=== PATIENT | female | born 1995 | race African-American/Black ===

== ENCOUNTER → 2017-02-24 | Outpatient (CLI) | payer MEDICAID ==
--- NOTE | 2017-02-24 16:45 | RADIOLOGY REPORT (SQ) ---
EXAM DESCRIPTION: U/S [id number] TRNABD 1GES W/ODOP COMPLETED DATE/TIME: 02/24/2017 3:29 pm REASON FOR STUDY: ENCOUNTER FOR SUPERVISION OR NORMAL FIRST , FIRST TRIMESTER Z34.01 ENCNT R FOR SUPRVSN OF NORMAL FIRST PREG, FIRST TRIMES COMPARISON: None. TECHNIQUE: Transabdominal static and realtime grayscale images acquired of the pelvis. Additional se lected spectral and color Doppler images recorded. All images stored on PACs. bHCG: Not applicable. LIMITATIONS: None. FINDINGS: FETUS: Living intrauterine . EGA: 10 weeks 6 days MIHIR: 09/16/2017 FHR: 155 beats per minute. SUBCHORIONIC BLEED: No SIZE OF BLEED: Not applicable. UTERUS: 11.8 x 10 x 7.3 cm. No masses. No anomalies. CERVICAL LENGTH: 2.8 cm. Closed. RIGHT ADNEXA: Normal ovary with normal vascular flow. 2.5 x 3.2 x 1.8 cm. No adnexal free fluid. No adnexal masses. LEFT ADNEXA: Normal ovary with normal vascular flow. 2.5 x 3.1 x 2.5 cm. No adnexal free fluid. No adnexal masses. FREE FLUID: None. OTHER: No other significant finding. IMPRESSION: LIVING INTRAUTERINE . EGA 10 weeks 6 days. Trimester of : First - 0 to 13 weeks. TECHNICAL DOCUMENTATION: JOB ID: [id number] [employer]- All Rights Reserved
== END ==
LOC: RAD 14:58
PROVIDERS: ATTEND Nurse Practitioner Women's Health
DX: Z34.01 Encounter for supervision of normal first pregnancy, first trimester (principal)
CPT/HCPCS: 76801

== ENCOUNTER 2017-07-04 10:30 | Outpatient (CLI) | payer MEDICAID ==
[2017-07-04 11:05] LABS: APPEARANCE,URINE SLIGHTLY-CLOUDY; BILIRUBIN,URINE NEGATIVE (NEGATIVE); COLOR,URINE YELLOW; GLUCOSE, URINE NEGATIVE (NEGATIVE); KETONES,URINE NEGATIVE (NEGATIVE); LEUKOCYTE ESTERASE,URINE TRACE (NEGATIVE); NITRITE,URINE NEGATIVE (NEGATIVE); PROTEIN,URINE 30 mg/dL (NEGATIVE)
[2017-07-04 11:30] LABS: URINE AMPHETAMINES SCREEN NEGATIVE; URINE BARBITURATES SCREEN NEGATIVE; URINE BENZODIAZEPINES SCREEN NEGATIVE; URINE COCAINE SCREEN NEGATIVE; URINE MARIJUANA (THC) SCREEN NEGATIVE; URINE METHADONE SCREEN NEGATIVE; URINE PHENCYCLIDINE SCREEN NEGATIVE
[2017-07-04] MEDS ORDERED: RINGERS SOLUTION,LACTATED 1,000 ML IV PRN ×2 (11:45→11:46)
[2017-07-04 13:18] LABS: ABSOLUTE EOSINOPHILS # (AUTO) 0.1 10^3/uL (0.0-0.6); ABSOLUTE LYMPHOCYTES (AUTO) 1.1 10^3/uL (0.5-4.7); ABSOLUTE MONOCYTES (AUTO) 0.7 10^3/uL (0.1-1.4); ABSOLUTE NEUT (AUTO) 7.8 10^3/uL (1.7-8.2); BASOPHILS % (AUTO) 0.4 % (0-2); EOSINOPHILS % (AUTO) 1.2 % (0-6); HEMATOCRIT 29.7 % (36.0-47.0); LYMPHOCYTES % (AUTO) 11.2 % (13-45); MEAN CORPUSCULAR HEMOGLOBIN 29.4 pg (27.0-33.4); MEAN CORPUSCULAR HGB CONC 33.6 g/dL (32.0-36.0); MEAN CORPUSCULAR VOLUME 88 fl (80-97); MONOCYTES % (AUTO) 7.5 % (3-13); PLATELET COUNT 167 10^3/uL (150-450); RED BLOOD COUNT 3.39 10^6/uL (3.72-5.28); RED CELL DISTRIBUTION WIDTH 13.6 % (11.5-14.0); SEGMENTED NEUTROPHILS % (AUTO) 79.7 % (42-78); TOTAL CELLS COUNTED % (AUTO) 100 %; WHITE BLOOD COUNT 9.8 10^3/uL (4.0-10.5)
[2017-07-04 13:32] LABS: PROTHROMBIN TIME 13.7 SEC (11.4-15.4)
[2017-07-04 13:33] LABS: PARTIAL THROMBOPLASTIN TIME 30.3 SEC (23.5-35.8)
[2017-07-04] MEDS ORDERED: PSEUDOEPHEDRINE HCL 30 MG TABLET PO PRN (13:53)
[2017-07-04] MEDS ORDERED: ACETAMINOPHEN 325 MG TABLET PO PRN (13:53)
--- NOTE | 2017-07-04 13:56 | RADIOLOGY REPORT (SQ) ---
EXAM DESCRIPTION: U/S OB LIMITED COMPLETED DATE/TIME: 07/04/2017 1:41 pm REASON FOR STUDY: contractions, 29wks, cervical length COMPARISON: 02/24/2017 TECHNIQUE: Limited transabdominal grayscale ultrasound for evaluation of specific requested obstetri juan c parameters. LIMITATIONS: None. FINDINGS: CERVICAL LENGTH: 4 cm. Closed. DARIN: Not measured. Cm. FHR: 145 beats per minute. PRESENTATION: Not indicated. OTHER: No other significant findings. IMPRESSION: LIMITED OBSTETRICAL ULTRASOUND WITH MEASURED PARAMETERS DELINEATED ABOVE. Trimester of : Third trimester - 28 weeks to delivery. TECHNICAL DOCUMENTATION: JOB ID: [id number] [employer]- All Rights Reserved Reading location - IP/workstation name: [email or web address]
[2017-07-04] MEDS ORDERED: ACETAMINOPHEN 325 MG TABLET ONE (14:05)
[2017-07-05] MEDS ORDERED: PRENATAL VITAMIN W DHA CAPSULE PO SCH (10:00)
== END 2017-07-04 14:25 | disposition home or self-care (01) ==
LOC: LC 10:30
PROVIDERS: ATTEND Student in an Organized Health Care Education/Training Program
PROC: 4A1HXCZ Monitoring of Products of Conception, Cardiac Rate, External Approach (ICD-10-PCS; principal; 2017-07-04)
DX: O99.283 Endocrine, nutritional and metabolic diseases complicating pregnancy, third trimester (principal); E86.0 Dehydration; R04.0 Epistaxis; R10.31 Right lower quadrant pain; Z3A.29 29 weeks gestation of pregnancy
CPT/HCPCS: 59899; 36415; 87086; 85025; 85362; 85610; 85730; 81001; 80307; 76815; J3490

== ENCOUNTER 2017-08-15 10:36 | Outpatient (CLI) | payer MEDICAID ==
[2017-08-15 11:43] LABS: APPEARANCE,URINE SLIGHTLY-CLOUDY; BILIRUBIN,URINE NEGATIVE (NEGATIVE); COLOR,URINE YELLOW; GLUCOSE, URINE NEGATIVE (NEGATIVE); KETONES,URINE 20 mg/dL (NEGATIVE); LEUKOCYTE ESTERASE,URINE NEGATIVE (NEGATIVE); NITRITE,URINE NEGATIVE (NEGATIVE); PROTEIN,URINE NEGATIVE (NEGATIVE); URINE SPECIFIC GRAVITY 1.008
[2017-08-15 12:19] LABS: URINE AMPHETAMINES SCREEN NEGATIVE; URINE BARBITURATES SCREEN NEGATIVE; URINE BENZODIAZEPINES SCREEN NEGATIVE; URINE COCAINE SCREEN NEGATIVE; URINE MARIJUANA (THC) SCREEN NEGATIVE; URINE METHADONE SCREEN NEGATIVE; URINE PHENCYCLIDINE SCREEN NEGATIVE
== END 2017-08-15 11:46 | disposition home or self-care (01) ==
LOC: LC 10:36
PROVIDERS: ATTEND Obstetrics & Gynecology Gynecology
PROC: 4A1HXCZ Monitoring of Products of Conception, Cardiac Rate, External Approach (ICD-10-PCS; principal; 2017-08-15)
DX: O47.03 False labor before 37 completed weeks of gestation, third trimester (principal); Z3A.35 35 weeks gestation of pregnancy
CPT/HCPCS: 59025; 80307; 81001

== ENCOUNTER 2017-09-02 15:20 | Inpatient (IN) | payer MEDICAID ==
--- NOTE | 2017-09-02 15:26 | Non Stress Test Report ---
Non Stress Test Datetime Report Generated by CPN: 09/02/2017 15:26 DEMOGRAPHIC EGA NST: 35.3 INDICATION Indication for Study: Ordered by Provider VITAL SIGNS Temperature - NST: 98.9 Pulse - NST: 95 RESP - NST: 18 NBPSYS NST: 124 NBPDIA NST: 74 MONITORING Monitor Explained: Monitor Explained; Test Explained; Patient Verbalized Understanding Time on Monitor: 08/15/2017 10:55 Time off Monitor: 08/15/2017 11:55 NST Duration: 60 NST INTERVENTIONS NST Interventions: PO Hydration Physician Notified NST: A Daniel CNM BABY A: [id number] BABY A Movement : Present Contraction Frequency : uterine irritability FHR Baseline : 145 Accelerations : 15X15 Decelerations : None Variability : Moderate 6-25bpm NST Review: Meets Criteria for Reactive NST NST Review and Verified By : Ayala Garcia RN NST Results: Reactive NST REPORT Report Trigger: Send Report
[2017-09-02] MEDS ORDERED: RINGERS SOLUTION,LACTATED 1,000 ML IV PRN (15:46)
[2017-09-02] MEDS ORDERED: ZOLPIDEM TARTRATE 5 MG TABLET PO PRN (15:46)
[2017-09-02] MEDS ORDERED: RINGERS SOLUTION,LACTATED 300 ML IV ONE (15:46)
[2017-09-02] MEDS ORDERED: DINOPROSTONE 10 MG VAGINAL INSERT.SR PV PRN (15:46)
[2017-09-02] MEDS ORDERED: OXYTOCIN/NORMAL SALINE 20 UNIT/1,000 ML RTUINJ IV PRN (15:46)
[2017-09-02] MEDS ORDERED: PENICILLIN G POTASSIUM 5,000,000 UNIT in DEXTROSE 5%-WATER 100 ML IV ONE (15:49)
[2017-09-02 16:13] LABS: ABSOLUTE EOSINOPHILS # (AUTO) 0.1 10^3/uL (0.0-0.6); ABSOLUTE LYMPHOCYTES (AUTO) 1.5 10^3/uL (0.5-4.7); ABSOLUTE MONOCYTES (AUTO) 0.6 10^3/uL (0.1-1.4); ABSOLUTE NEUT (AUTO) 5.7 10^3/uL (1.7-8.2); BASOPHILS % (AUTO) 0.6 % (0-2); EOSINOPHILS % (AUTO) 1.6 % (0-6); HEMATOCRIT 32.5 % (36.0-47.0); HEMOGLOBIN 10.7 g/dL (12.0-15.5); LYMPHOCYTES % (AUTO) 19.3 % (13-45); MEAN CORPUSCULAR HEMOGLOBIN 28.3 pg (27.0-33.4); MEAN CORPUSCULAR VOLUME 86 fl (80-97); MONOCYTES % (AUTO) 7.2 % (3-13); PLATELET COUNT 145 10^3/uL (150-450); RED BLOOD COUNT 3.78 10^6/uL (3.72-5.28); RED CELL DISTRIBUTION WIDTH 14.1 % (11.5-14.0); SEGMENTED NEUTROPHILS % (AUTO) 71.3 % (42-78); TOTAL CELLS COUNTED % (AUTO) 100 %; WHITE BLOOD COUNT 7.9 10^3/uL (4.0-10.5)
--- NOTE | 2017-09-02 16:18 | Admission Physical ---
Datetime Report Generated by CPN: 09/02/2017 16:17 CURRENT ADMISSION Hx Assessment: The History has been Reviewed and is Current Chief Complaint: Sent from OB Office for Evaluation and Treatment - Please Specify; Other Chief Complaint Other: sent from office for induction of labor Indication for Induction: Not Applicable; Gestational HTN Admit Impression : Term, Intrauterine ; No Active Labor; Intact Membranes; Induction of Labor Admit Plan: Admit to Unit; Initiate Labor Induction Protocol ALLERGIES Medication Allergies: No Medication Allergies: No Known Allergies (09/02/2017) Latex: No Latex Allergies Food Allergies: no OBSTETRICAL HISTORY EDC: 09/16/2017 00:00 : 1 Para: 0 Term: 0 : 0 SAB: 0 IAB: 0 Ectopic: 0 Livin Cesareans: 0 VBACs: 0 Multiple Births: 0 Gestational Diabetes: No Rh Sensitization: No Incompetent Cervix: No HAYLEY: No Infertility: No ART Treatment: No Uterine Anomaly: No IUGR: No Hx Previous C/S: No Macrosomia: No Hx Loss/Stillborn: No PIH: No Hx : No Placenta Previa/Abruption: No Depression/PP Depression: No PTL/PROM: No Post Hemorrhage: No Current Procedures: Ultrasound Obstetrical History Comments: G1- current SEE RECORDS Alcohol: No Marijuana : No Cocaine: No Other Illicit Drugs: No Cigarettes: Never Smoker. [id number] MEDICAL HISTORY Diabetes: No Blood Transfusion: No Pulmonary Disease (Asthma, TB): No Breast Disease: No Hypertension: No Park Warden Surgery: No Heart Disease: No Hosp/Surgery: Yes Autoimmune Disorder: No Anesthetic Complications: No Kidney Disease: No Abnormal Pap Smear: No Neuro/Epilepsy: No Psychiatric Disorders: No Other Medical Diseases: No Hepatitis/Liver Disease: No Significant Family History: No Varicosities/Phlebitis: No Trauma/Violence : No Thyroid Dysfunction: No Medical History Comments: Tonsilectomy-10 y/o INFECTIOUS HISTORY Gonorrhea: No Genital Herpes: No Chlamydia: No Syphilis: No Hepatitis: No HIV/AIDS Exposure: No Rash or Viral Illness: No HPV: No PHYSICAL EXAM General: Normal HEENT: Normal Neurologic: Normal Thyroid: Deferred Heart: Normal Lungs: Normal Breast: Normal Back: Normal Abdomen: Normal Genitourinary Exam: Normal Extremities: Normal DTRs: Normal Pelvic Type: Adequate Vital Signs: Reviewed VAGINAL EXAM Dilatation: 0 Effacement: 50 Station: -1 Contraction Comments: irreg MEMBRANES Membranes: Intact FETUS A EGA: 38.0 Monitoring: External US FHR- Baseline: 145 Variability: Moderate 6-25bpm Accelerations: 15X15 Decelerations: None FHR Category: Category I Estimated Weight (gm): 3600 Presentation: Vertex Admit Comment: Sent in from office for elevated bp last 2 visits, denies headache, visual dist. and epigastric pain, denies vb, leaking, states active baby, denies ctx. Admit to IOL GHTN vs. pre-e Cervidil overnight GBS +, start pcn at 4 am or active labor Pre-e labs PLANS FOR LABOR AND DELIVERY Labor and Delivery: None Pain Management: None Other Pain Management Plans: "double scoliosis no epidural Feeding Preference: Breast Benefit of Breast Feed Discussed: Yes Circumcision: N/A INFORMED CONSENT Assignment: Manjula Morataya MD Signature: with User ID: [email or web address] : with User ID: [email or web address]
[2017-09-02 16:25] LABS: APPEARANCE,URINE SLIGHTLY-CLOUDY; BILIRUBIN,URINE NEGATIVE (NEGATIVE); COLOR,URINE YELLOW; GLUCOSE, URINE NEGATIVE (NEGATIVE); KETONES,URINE NEGATIVE (NEGATIVE); LEUKOCYTE ESTERASE,URINE SMALL (NEGATIVE); NITRITE,URINE NEGATIVE (NEGATIVE); PROTEIN,URINE NEGATIVE (NEGATIVE); URINE SPECIFIC GRAVITY 1.008
[2017-09-02 16:33] LABS: ALANINE AMINOTRANSFERASE 25 U/L (9-52); ALBUMIN 3.4 g/dL (3.5-5.0); ALKALINE PHOSPHATASE 137 U/L (38-126); ANION GAP 12 (5-19); ASPARTATE AMINO TRANSFERASE 18 U/L (14-36); BILIRUBIN,DIRECT 0.3 mg/dL (0.0-0.4); BILIRUBIN,TOTAL 0.8 mg/dL (0.2-1.3); BLOOD UREA NITROGEN 4 mg/dL (7-20); CALCIUM 9.1 mg/dL (8.4-10.2); CARBON DIOXIDE 21 mmol/L (22-30); CHLORIDE 110 mmol/L (98-107); GLUCOSE 72 mg/dL (75-110); LDH 463 U/L (313-618); POTASSIUM 3.8 mmol/L (3.6-5.0); SODIUM 142.9 mmol/L (137-145); TOTAL PROTEIN 6.7 g/dL (6.3-8.2); URIC ACID 4.6 mg/dL (2.5-6.2)
[2017-09-02 16:33] LABS: URINE AMPHETAMINES SCREEN NEGATIVE; URINE BARBITURATES SCREEN NEGATIVE; URINE BENZODIAZEPINES SCREEN NEGATIVE; URINE COCAINE SCREEN NEGATIVE; URINE MARIJUANA (THC) SCREEN NEGATIVE; URINE METHADONE SCREEN NEGATIVE; URINE PHENCYCLIDINE SCREEN NEGATIVE
[2017-09-02 16:37] LABS: UR PRO/CREAT RATIO RESULT 0.3 mg/mg (0.0-0.2); URINE CREATININE 87.5 mg/dL (16-327); URINE PROTEIN 23.2 mg/dL (<12)
[2017-09-02] MEDS ORDERED: DINOPROSTONE 10 MG VAGINAL INSERT.SR ONE (18:09)
[2017-09-02] MEDS ORDERED: ACETAMINOPHEN 325 MG TABLET ONE (23:55)
[2017-09-02] MEDS: ACETAMINOPHEN 325 MG TABLET PO PRN (23:57)
[2017-09-03] MEDS ORDERED: PENICILLIN G-K 5 MILLION UNIT VIAL ONE ×6 (00:11→21:55)
[2017-09-03] MEDS: PENICILLIN G POTASSIUM 2,500,000 UNIT in DEXTROSE 5%-WATER 50 ML IV SCH (04:19)
[2017-09-03] MEDS ORDERED: MISOPROSTOL 0.1 MG TABLET PO ONE ×2 (08:11→13:33)
[2017-09-03] MEDS ORDERED: MISOPROSTOL 0.1 MG TABLET ONE ×2 (08:16→13:37)
[2017-09-03] MEDS ORDERED: MISOPROSTOL 0.1 MG TABLET PV ONE (13:35)
[2017-09-03] MEDS ORDERED: MISOPROSTOL 0.2 MG TABLET ONE (18:09)
[2017-09-03] MEDS ORDERED: OXYTOCIN/NORMAL SALINE 20 UNIT/1,000 ML RTUINJ ONE (18:10)
[2017-09-03] MEDS ORDERED: LIDOCAINE 1% INJ-PF (10 MG/ML) 30 ML SDV ONE (18:10)
[2017-09-03] MEDS ORDERED: OXYTOCIN/NORMAL SALINE 20 UNIT/1,000 ML RTUINJ IV PRN (18:11)
[2017-09-03] MEDS ORDERED: ACETAMINOPHEN 325 MG TABLET ONE (23:40)
[2017-09-03] MEDS: ACETAMINOPHEN 325 MG TABLET PO PRN (23:42)
[2017-09-04] MEDS ORDERED: PENICILLIN G-K 5 MILLION UNIT VIAL ONE ×3 (02:27→10:25)
[2017-09-04] MEDS ORDERED: ONDANSETRON HCL INJ/PF 4 MG/2 ML SDV ONE (02:44)
[2017-09-04] MEDS ORDERED: ONDANSETRON HCL INJ/PF 4 MG/2 ML SDV IV ONE (03:01)
[2017-09-04] MEDS ORDERED: PROMETHAZINE HCL INJ 25 MG/1 ML VIAL IV ONE (11:02)
[2017-09-04] MEDS ORDERED: NALBUPHINE HCL INJ 10 MG/1 ML AMPULE INJ ONE (11:02)
[2017-09-04] MEDS ORDERED: PROMETHAZINE HCL INJ 25 MG/1 ML VIAL ONE (11:03)
[2017-09-04] MEDS ORDERED: NALBUPHINE HCL INJ 10 MG/1 ML AMPULE ONE (11:04)
[2017-09-04] MEDS ORDERED: HYDROCODONE/ACETAMINOPHEN 5-325 MG TABLET PO PRN (14:28)
[2017-09-04] MEDS ORDERED: MAGNESIUM HYDROXIDE SUSP 30 ML UDCUP PO PRN (14:28)
[2017-09-04] MEDS ORDERED: ACETAMINOPHEN WITH CODEINE #3 TABLET PO PRN ×2 (14:28)
[2017-09-04] MEDS ORDERED: PROMETHAZINE HCL 25 MG TABLET PO PRN (14:28)
[2017-09-04] MEDS ORDERED: BENZOCAINE/MENTHOL AEROSOL SPRAY 56 ML TOP PRN (14:28)
[2017-09-04] MEDS ORDERED: NA PHOS,M-B/NA PHOS,DI-BA (ADULT) 133 ML ENEMA PR PRN (14:28)
[2017-09-04] MEDS ORDERED: DIBUCAINE 1% OINTMENT 28 GM TP PRN (14:28)
[2017-09-04] MEDS ORDERED: DIPHENHYDRAMINE HCL 25 MG CAPSULE PO PRN (14:28)
[2017-09-04] MEDS ORDERED: DIPH/PERTUSS(ACELL)/TETANUS VAC/PF 0.5 ML SYR (>=10YO) IM PRN (14:28)
[2017-09-04] MEDS ORDERED: MEASLES,MUMPS&RUBELLA VACC/PF 0.5 ML VIAL SUBCUT PRN (14:28)
[2017-09-04] MEDS ORDERED: PSEUDOEPHEDRINE HCL 30 MG TABLET PO PRN (14:28)
[2017-09-04] MEDS ORDERED: GLYCERIN/WITCH HAZEL LEAF 1 EACH MED..PAD TP PRN (14:28)
[2017-09-04] MEDS ORDERED: PROMETHAZINE HCL 25 MG SUPP.RECT PR PRN (14:28)
[2017-09-04] MEDS ORDERED: PROMETHAZINE HCL INJ 25 MG/1 ML VIAL IV PRN (14:28)
[2017-09-04] MEDS ORDERED: ZOLPIDEM TARTRATE 5 MG TABLET PO PRN (14:28)
[2017-09-04] MEDS ORDERED: OXYTOCIN/NORMAL SALINE 20 UNIT/1,000 ML RTUINJ IV PRN (14:28)
[2017-09-04] MEDS ORDERED: ACETAMINOPHEN 650 MG SUPP.RECT PR PRN (14:28)
[2017-09-04] MEDS ORDERED: OXYTOCIN/NORMAL SALINE 20 UNIT/1,000 ML RTUINJ ONE (14:48)
--- NOTE | 2017-09-04 15:12 | Warning Signs in Babies ---
VOD Warning Signs Datetime Report Generated by [facility]: 09/04/2017 15:12 VOD#608 -Warning Signs in Babies: Viewed with Parent(s)/Family (09/04/2017 15:05:Idania Tavarez RN)
[2017-09-04] MEDS: PENICILLIN G POTASSIUM 2,500,000 UNIT in DEXTROSE 5%-WATER 50 ML IV SCH (16:30)
[2017-09-04] MEDS: DOCUSATE SODIUM 100 MG CAPSULE PO SCH (19:59)
[2017-09-04] MEDS: FERROUS SULFATE 325 MG TABLET PO SCH (19:59)
[2017-09-04] MEDS: FAMOTIDINE 20 MG TABLET PO SCH (22:39)
[2017-09-04] MEDS: IBUPROFEN 800 MG TABLET PO SCH (22:40)
[2017-09-05] MEDS: IBUPROFEN 800 MG TABLET PO SCH ×3 (06:16→21:19)
[2017-09-05 07:49] LABS: HEMATOCRIT 22.9 % (36.0-47.0); MEAN CORPUSCULAR HGB CONC 32.4 g/dL (32.0-36.0); MEAN CORPUSCULAR VOLUME 86 fl (80-97); PLATELET COUNT 169 10^3/uL (150-450); RED BLOOD COUNT 2.65 10^6/uL (3.72-5.28); RED CELL DISTRIBUTION WIDTH 14.2 % (11.5-14.0)
[2017-09-05 08:05] LABS: HEMOGLOBIN 7.4 g/dL (12.0-15.5); WHITE BLOOD COUNT 16.7 10^3/uL (4.0-10.5)
--- NOTE | 2017-09-05 09:08 | PDOC PROGRESS REPORT ---
Subjective-OB Progress Note for:: 09/05/17 Subjective: Day #1 s/p Denies concerns, states lochia is stable, pain well controlled, voiding without difficulty. Physical Exam (OB) Vital Signs: Temp Pulse Resp BP Pulse Ox 98.5 F 88 16 109/59 L 98 09/05/17 07:57 09/05/17 07:57 09/05/17 07:57 09/05/17 07:57 09/05/17 07:57 - PIH/Pre-Eclampsia DTR's: 1 + Clonus: Negative Headache: Absent Epigastric Pain: No Visual Changes: No - Lochia Lochia Amount: Small 10-25 ml Lochia Color: Rubra/Red - Abdomen Description: Soft, Round Hernia Present: No Fundal Description: Firm, Midline Fundal Height: u/u - u/2 Objective-Diagnostic Laboratory: 09/05/17 06:54 09/02/17 16:00 09/02/17 09/05/17 16:00 06:54 WBC 16.7 H D RBC 2.65 L Hgb 7.4 L D Hct 22.9 L MCV 86 MCH 28.0 MCHC 32.4 RDW 14.2 H Plt Count 169 Blood Type A POSITIVE Antibody Screen NEGATIVE Assessment and Plan(PN) - Assessment and Plan (1) Vaginal delivery Is this a current diagnosis for this admission?: Yes Plan: routine pp care (2) Positive GBS test Is this a current diagnosis for this admission?: Yes Plan: tx in labor (3) Gestational hypertension Qualifiers: Trimester: third trimester Qualified Code(s): O13.3 - Gestational [ -induced] hypertension without significant proteinuria, third trimester Is this a current diagnosis for this admission?: Yes Plan: monitor bp and s/sx - Time Spent with Patient Time with patient: Less than 15 minutes Critical Time spent with patient: Less than 15 minutes Medications reviewed and adjusted accordingly: Yes - Disposition Anticipated Discharge: Home Within: within 24 hours
[2017-09-05] MEDS: DOCUSATE SODIUM 100 MG CAPSULE PO SCH ×2 (09:52→17:35)
[2017-09-05] MEDS: FERROUS SULFATE 325 MG TABLET PO SCH ×2 (09:53→17:35)
[2017-09-05] MEDS: FAMOTIDINE 20 MG TABLET PO SCH ×2 (09:53→21:21)
[2017-09-05] MEDS: SENNOSIDES/DOCUSATE 8.6-50 MG 1 EACH TABLET PO SCH (09:53)
[2017-09-05] MEDS: PRENATAL VITAMIN W DHA CAPSULE PO SCH (09:53)
[2017-09-06] MEDS: IBUPROFEN 800 MG TABLET PO SCH (06:03)
--- NOTE | 2017-09-06 09:11 | PDOC DISCHARGE SUMMARY ---
Final Diagnosis Discharge Date: 09/06/17 - Final Diagnosis (1) Vaginal delivery Is this a current diagnosis for this admission?: Yes (2) Positive GBS test Is this a current diagnosis for this admission?: Yes (3) Gestational hypertension Is this a current diagnosis for this admission?: Yes Discharge Data - Discharge Medication Prescriptions: Docusate Sodium [Colace 100 mg Capsule] 100 mg PO BID #60 capsule Ferrous Sulfate [Feosol 325 mg Tablet] 325 mg PO BID #60 tablet Ibuprofen [Motrin 800 mg Tablet] 800 mg PO Q8 #60 tablet Home Medications: Pnv No.121/Iron/Folic Acid [ Multivitamin Tablet] 1 tab PO DAILY Docusate Sodium [Colace 100 mg Capsule] 100 mg PO BID #60 capsule 09/06/17 Ferrous Sulfate [Feosol 325 mg Tablet] 325 mg PO BID #60 tablet 09/06/17 Ibuprofen [Motrin 800 mg Tablet] 800 mg PO Q8 #60 tablet 09/06/17 Gestational Age: 37 Reason(s) for Admission: Induction of Labor, PIH Procedures: NST Intrapartum Procedure(s): Spontaneous Vaginal Delivery Complication(s): Laceration-Vaginal Laceration-Degree: 1st - Data Baby 1 Female Home with Mother: Yes Complications: No - Diagnosis Test Laboratory: Temp Pulse Resp BP Pulse Ox 97.8 F 70 18 117/76 100 09/06/17 07:17 09/06/17 07:17 09/06/17 07:17 09/06/17 07:17 09/06/17 07:17 09/02/17 09/02/17 09/05/17 15:32 16:00 06:54 RBC 3.78 2.65 L Hgb 10.7 L 7.4 L D Hct 32.5 L 22.9 L Urine Opiates Screen NEGATIVE - Discharge information/Instructions Discharge Activity: Activity As Tolerated, Pelvic Rest, No tub bath Discharge Diet: Regular Disposition: HOME, SELF-CARE Follow up with: [facility] in: 1, Weeks - bp check
[2017-09-06] MEDS: SENNOSIDES/DOCUSATE 8.6-50 MG 1 EACH TABLET PO SCH (09:17)
[2017-09-06] MEDS: DOCUSATE SODIUM 100 MG CAPSULE PO SCH (09:17)
[2017-09-06] MEDS: FAMOTIDINE 20 MG TABLET PO SCH (09:17)
[2017-09-06] MEDS: FERROUS SULFATE 325 MG TABLET PO SCH (09:17)
[2017-09-06] MEDS: PRENATAL VITAMIN W DHA CAPSULE PO SCH (09:17)
[2017-09-06 14:08] VITALS: BP 127/76
--- NOTE | 2017-09-12 08:42 | Delivery Summary ---
Del Sum A-C Datetime Report Generated by CPN: 09/12/2017 08:42 DELIVERY PERSONNEL DELIVERY PERSONNEL: [id number] Delivery Doctor:: Maria Isabel Orellana CNM Nurse Cooking Chef Certified:: Maria Isabel Orellana CNM Labor and Delivery Nurse:: Idania Tavarez RNjapanese interpreter Nurse:: TRESA Bonner Nursery Nurse:: Heidi Emery RN Additional Personnel: : Chuyita Sutherland RN MATERNAL INFORMATION Delivery Anesthesia: Local Medications After Delivery: Pitocin Bolus-Please Comment Meds After Delivery Comment: Pitocin 20 units in 1000 ml nss open for bolus, additional bag of 20 units of pitocin in 1000 ml NS per order Estimated Blood Loss (ml): 175 Maternal Complications: Other Provider Comments: live female in vertex OA to RAIZA at 1435. Spontaneous respirations and cry after bulb suction of mouth and nose. 3-vessel cord. Apgars 8-9. Cord clamped x2, after 2 min delay, then cut by female relative of patient. Placenta, membranes, and cord expelled at 1440, Sniha presentation. 1st degree laceration of left labia extending into the vagina repaired as noted above under local anesthesia. FF at U-2. Hemostasis achieved. Patient tolerated procedure well. LABOR SUMMARY EDC: 09/16/2017 00:00 No. Babies in Womb: 1 Attempted: No Labor Anesthesia: IV Sedation LABOR INFORMATION Reason for Induction: Gestational Hypertension Cervical Ripening Agents: Cervidil; Cytotec @ Cervical Ripening Agents: Cytotec @ 50 mcg PO Cervical Ripening Agents: Cervidil Oxytocin: Induction Group B Beta Strep: positive Antibiotics # of Doses: 7 Antibiotics Time of Last Dose: 105 Name of Antibiotic Given: PCN Steroids Given: None Reason Steroids Not Administered: Not Applicable MEMBRANES Membranes Rupture Method: Artificial Rupture of Membranes: 09/04/2017 02:20 Length of Rupture (hr): 12.25 Amniotic Fluid Color: Clear Amniotic Fluid Amount: Small Amniotic Fluid Odor: Normal STAGES OF LABOR Stage 3 hr: 0 Stage 3 min: 5 VAGINAL DELIVERY Episiotomy: None Laceration #1: Vaginal Laceration Extension #1: First Degree Other Laceration: left labial Laceration Repair: Yes Laceration Repair Note: Repaired using interrupted stitches 3-0 Chromic Sponge Count Correct: N/A Sharps Count Correct: N/A CSECTION DELIVERY Primary Indication: N/A Secondary Indication: N/A CSection Incidence: N/A Labor: N/A Elective: N/A CSection Incision: N/A BABY A INFORMATION Infant Delivery Date/Time: 09/04/2017 14:35 Method of Delivery: Vaginal Method of Delivery: Vaginal Born in Route : No : N/A Forceps: N/A Vacuum Extraction: N/A Shoulder Dystocia : No PRESENTATION/POSITION BABY A Presentation: Cephalic Presentation: Cephalic Cephalic Presentation: Vertex Vertex Position: Right Occipital Anterior Breech Presentation: N/A PLACENTA INFORMATION BABY A Placenta Delivery Time : 09/04/2017 14:40 Placenta Method of Delivery: Expressed Placenta Method of Delivery: Expressed Placenta Status: Delivered SCORES BABY A Heart Rate 1 min: >100 bpm Heart Rate 1 min: >100 bpm Resp Effort 1 min: Good Cry Resp Effort 1 min: Good Cry Reflex Irritability 1 min: Cough or Sneeze or Pulls Away Reflex Irritability 1 min: Cough or Sneeze or Pulls Away Muscle Tone 1 min: Active Motion Muscle Tone 1 min: Active Motion Color 1 min: Blue/Pale Color 1 min: Blue/Pale Resuscitation Effort 1 min: Tactile Stimulation Resuscitation Effort 1 min: Tactile Stimulation SCORE 1 MIN: 8 Heart Rate 5 min: >100 bpm Heart Rate 5 min: >100 bpm Resp Effort 5 min: Good Cry Resp Effort 5 min: Good Cry Reflex Irritability 5 min: Cough or Sneeze or Pulls Away Reflex Irritability 5 min: Cough or Sneeze or Pulls Away Muscle Tone 5 min: Active Motion Muscle Tone 5 min: Active Motion Color 5 min: Body [place], Extremities Blue Color 5 min: Body [place], Extremities Blue Resuscitation Effort 5 min: Tactile Stimulation Resuscitation Effort 5 min: Tactile Stimulation SCORE 5 MIN: 9 INFANT INFORMATION BABY A Gestational Age at Delivery: 38.0 Gestational Status: Early Term- 37- 38.6 Weeks Infant Outcome : Liveborn Infant Condition : Stable Infant Sex: Female Infant Sex: Female IDENTIFICATION BABY A Infant Verification Date/Time: 09/04/2017 14:56 ID Band Number: [id number] Mother's Name Verified: Yes Infant RN Verifying Infant: Alejandra Escamilla [facility] Additional Verifying Personnel: Ana M Mccain RN WEIGHT/LENGTH BABY A Birthweight (gm): 3350 Weight (lb): 7 Weight (oz): 6 Infant Length (in): 20.50 Infant Length (cm): 52.07 CORD INFORMATION BABY A No. Cord Vessels: 3 Nuchal Cord : N/A Cord Blood Taken: Yes-For Storage (Mom's Blood type +) Infant Suction: Mouth; Nose ASSESSMENT BABY A Infant Complications: None Physical Findings at Delivery: Within Normal Limits Respirations: Appears Normal Skin to Skin: Yes Master Cosmetologist/ALS Called : No Infant Care By: Toney Emery [facility] Transferred To: Remains with Mother BABY B INFORMATION : N/A SIGNATURES Assignment: Manjula Morataya MD Signature: with User ID: [email or web address] : with User ID: [email or web address] : I personally evaluated and examined the patient in conjunction with the MLP and agree with the assessment, treatment plan and disposition.
== END 2017-09-06 15:30 | disposition home or self-care (01) | DRG 775 ==
LOC: LR 15:20 → 2S 09-04 18:30
PROVIDERS: ADMIT Obstetrics & Gynecology; ATTEND Obstetrics & Gynecology
PROC: 3E0P7VZ Introduction of Hormone into Female Reproductive, Via Natural or Artificial Opening (ICD-10-PCS; 2017-09-02)
PROC: 3E033VJ Introduction of Other Hormone into Peripheral Vein, Percutaneous Approach (ICD-10-PCS; 2017-09-02)
PROC: 4A1HXCZ Monitoring of Products of Conception, Cardiac Rate, External Approach (ICD-10-PCS; 2017-09-02)
PROC: 10E0XZZ Delivery of Products of Conception, External Approach (ICD-10-PCS; principal; 2017-09-04)
PROC: 0HQ9XZZ Repair Perineum Skin, External Approach (ICD-10-PCS; 2017-09-04)
PROC: 10907ZC Drainage of Amniotic Fluid, Therapeutic from Products of Conception, Via Natural or Artificial Opening (ICD-10-PCS; 2017-09-04)
DX: O13.4 Gestational [pregnancy-induced] hypertension without significant proteinuria, complicating childbirth (principal); O99.824 Streptococcus B carrier state complicating childbirth; O70.0 First degree perineal laceration during delivery; Z3A.38 38 weeks gestation of pregnancy; Z37.0 Single live birth
CPT/HCPCS: 36415; 80053; 80307; 81001; 82570; 83615; 84156; 84550; 85025; 85027; 86850; 86900; 86901; 88307; 94760; J2300; J2405; J2540; J2550; J2590; J3490

== ENCOUNTER 2017-09-08 16:40 | Observation (INO) | payer MEDICAID ==
[2017-09-08] MEDS ORDERED: DIPHENHYDRAMINE HCL 25 MG CAPSULE PO PRN (17:45)
[2017-09-08] MEDS ORDERED: FUROSEMIDE INJ/PF 20 MG/2 ML SDV IV PRN (17:45)
[2017-09-08] MEDS ORDERED: ACETAMINOPHEN 325 MG TABLET PO PRN (17:45)
[2017-09-08 19:18] LABS: MEAN CORPUSCULAR HEMOGLOBIN 28.3 pg (27.0-33.4); MEAN CORPUSCULAR VOLUME 86 fl (80-97); PLATELET COUNT 270 10^3/uL (150-450); RED BLOOD COUNT 2.33 10^6/uL (3.72-5.28); RED CELL DISTRIBUTION WIDTH 14.4 % (11.5-14.0); WHITE BLOOD COUNT 9.4 10^3/uL (4.0-10.5)
[2017-09-08 19:19] LABS: HEMOGLOBIN 6.6 g/dL (12.0-15.5)
[2017-09-09] MEDS ORDERED: FUROSEMIDE INJ/PF 20 MG/2 ML SDV ONE (03:19)
[2017-09-09 08:53] VITALS: BP 138/74
[2017-09-09] MEDS ORDERED: ACETAMINOPHEN 325 MG TABLET ONE (10:12)
[2017-09-09] MEDS ORDERED: ACETAMINOPHEN 325 MG TABLET PO PRN (10:53)
[2017-09-09] MEDS ORDERED: NIFEDIPINE 30 MG TAB.ER.24 PO SCH (11:00)
[2017-09-09 11:02] LABS: HEMATOCRIT 31.2 % (36.0-47.0); MEAN CORPUSCULAR HEMOGLOBIN 28.5 pg (27.0-33.4); MEAN CORPUSCULAR HGB CONC 33.8 g/dL (32.0-36.0); MEAN CORPUSCULAR VOLUME 85 fl (80-97); PLATELET COUNT 257 10^3/uL (150-450); WHITE BLOOD COUNT 8.6 10^3/uL (4.0-10.5)
[2017-09-09 11:03] LABS: HEMOGLOBIN 10.5 g/dL (12.0-15.5)
--- NOTE | 2017-09-09 13:12 | PDOC DISCHARGE SUMMARY ---
Final Diagnosis Discharge Date: 09/09/17 - Final Diagnosis (1) anemia Is this a current diagnosis for this admission?: Yes (2) Acute blood loss anemia Is this a current diagnosis for this admission?: Yes (3) Gestational hypertension Is this a current diagnosis for this admission?: Yes Discharge Data - Discharge Medication Prescriptions: Nifedipine [Procardia XL 30 mg Tablet] 30 mg PO DAILY@1100 #60 tab.er.24 Home Medications: Pnv No.121/Iron/Folic Acid [ Multivitamin Tablet] 1 tab PO DAILY Docusate Sodium [Colace 100 mg Capsule] 100 mg PO BID #60 capsule 09/06/17 Ferrous Sulfate [Feosol 325 mg Tablet] 325 mg PO BID #60 tablet 09/06/17 Ibuprofen [Motrin 800 mg Tablet] 800 mg PO Q8 #60 tablet 09/06/17 Nifedipine [Procardia XL 30 mg Tablet] 30 mg PO DAILY@1100 #60 tab.er.24 Reason(s) for Admission: Other - pp anemia Procedures: NST - Diagnosis Test Laboratory: Temp Pulse Resp BP Pulse Ox 98.4 F 83 18 138/74 H 99 09/09/17 08:51 09/09/17 08:51 09/09/17 08:51 09/09/17 08:51 09/09/17 06:12 09/08/17 09/09/17 17:50 10:30 RBC 2.33 L 3.70 L Hgb 6.6 L 10.5 L D Hct 20.0 L 31.2 L - Discharge information/Instructions Discharge Activity: Activity As Tolerated, Pelvic Rest, No tub bath Discharge Diet: Regular Disposition: HOME, SELF-CARE Follow up with: [facility] in: 1, Weeks
== END 2017-09-09 14:57 | disposition home or self-care (01) ==
LOC: 2S 16:40 → INTOOBSV 16:40
PROVIDERS: ADMIT Obstetrics & Gynecology Gynecology; ATTEND Obstetrics & Gynecology Gynecology
PROC: 30233N1 Transfusion of Nonautologous Red Blood Cells into Peripheral Vein, Percutaneous Approach (ICD-10-PCS; principal; 2017-09-08)
PROC: 30233N1 Transfusion of Nonautologous Red Blood Cells into Peripheral Vein, Percutaneous Approach (ICD-10-PCS; 2017-09-09)
DX: O90.81 Anemia of the puerperium (principal); D62 Acute posthemorrhagic anemia; O13.5 Gestational [pregnancy-induced] hypertension without significant proteinuria, complicating the puerperium; Z79.899 Other long term (current) drug therapy; Z82.49 Family history of ischemic heart disease and other diseases of the circulatory system; Z85.038 Personal history of other malignant neoplasm of large intestine
CPT/HCPCS: 86900; 86901; 36415 ×2; 36430; 86850; 85027; 86920; P9016 ×2; J3490 ×4; J1940

== ENCOUNTER 2018-06-28 02:59 | Emergency (ER) | payer MEDICAID ==
[2018-06-28] MEDS ORDERED: KETOROLAC TROMETHAMINE 60 MG/2 ML SDV IM ONE (06:49)
--- NOTE | 2018-06-28 07:31 | ER Document Report ---
ED General - General Chief Complaint: Toothache Stated Complaint: VOMITING,DIZZINESS,LEFT SIDE FACE PAIN Time Seen by Provider: 06/28/18 06:16 TRAVEL OUTSIDE OF THE [place] IN LAST 30 DAYS: No - HPI Notes: Patient presents emergency department for evaluation of dizziness, vomiting, left facial swelling and pain. She states she believes is coming from the tooth. She tried to call the free clinic to get into see the dentist, but is unable to get in for a few weeks. She denies any known fevers. She states she had 2 episodes of emesis yesterday, was primarily the food she ate. She is now able to drink. She is holding down liquids without difficulty. She denies any difficulty speaking or swallowing, no difficulty breathing. Normal bowel movement yesterday, she had been constipated but this resolved. No dysuria or urinary urgency, denies any possibility of . - Related Data Allergies/Adverse Reactions: No Known Allergies Allergy (Verified 06/28/18 03:23) Past Medical History - General Information source: Patient - Social History Smoking Status: Never Smoker Family History: Reviewed & Not Pertinent Neurological Medical History: Reports: Hx Migraine Past Surgical History: Reports: Hx Tonsillectomy - Immunizations Immunizations up to date: Yes Hx Diphtheria, Pertussis, Tetanus Vaccination: Yes Review of Systems - Review of Systems Constitutional: No symptoms reported EENT: See HPI Cardiovascular: No symptoms reported Respiratory: No symptoms reported Gastrointestinal: See HPI Genitourinary: No symptoms reported Musculoskeletal: No symptoms reported Skin: No symptoms reported Neurological/Psychological: No symptoms reported Physical Exam - Vital signs Vitals: Temp Pulse Resp BP Pulse Ox 98 F 73 12 133/93 H 100 06/28/18 03:23 06/28/18 03:23 06/28/18 03:23 06/28/18 03:23 06/28/18 03:23 - Notes Notes: Vital signs reviewed, please refer to chart. Patient is normocephalic, atrauma tic. Pupils equal round, reactive to light. Dentition is overall in good condition. The left posterior most maxillary molar is tender to palpation, over the base of the tooth as well as at the gumline. I do not appreciate any significant erythema or induration, but it is markedly tender. No facial erythema, induration, fluctuance noted. No submandibular swelling. Sublingual swelling. Neck is supple without meningismus. Heart is regular rate and rhythm. Lungs are clear to auscultation bilaterally. Abdomen is soft, nontender, normoactive bowel sounds throughout. Extremities without cyanosis, clubbing, edema. Peripheral pulses are equal. Skin is warm and dry. Patient is awake, alert, oriented x3. Cranial nerves II through XII are grossly intact without focal neurological deficits. Strength is plus 5 out of 5 bilateral upper and lower extremities. Sensation is intact. Gait within normal limits. Course - Re-evaluation Re-evalutation: 06/28/18 07:29 Patient presents to the emergency department for evaluation. Because she has perceived facial swelling and dental pain, will cover with antibiotics. She is given an anti-inflammatory here. She is told that any relief she receives from this antibiotic is only temporary. Definitive treatment involves seeing a dentist for further evaluation. She voiced understanding to this. We will send her with antibiotics, prescription strength anti-inflammatories, and close follow-up. She is to return to the ED with worsening or new concerning symptoms of any sort. - Vital Signs Vital signs: Temp Pulse Resp BP Pulse Ox 98 F 73 12 133/93 H 100 06/28/18 03:23 06/28/18 03:23 06/28/18 03:23 06/28/18 03:23 06/28/18 03:23 Discharge - Discharge Clinical Impression: Odontalgia Condition: Stable Disposition: HOME, SELF-CARE Instructions: Penicillin V K ([facility]), Toothache ([facility]), [facility] Additional Instructions: You need to see a dentist as soon as possible. Take medications as prescribed. Return to the emergency department with worsening or new concerning symptoms.
[2018-06-28 08:42] VITALS: BP 128/88
== END 2018-06-28 08:39 | disposition home or self-care (01) ==
LOC: ER 02:59
DX: K08.89 Other specified disorders of teeth and supporting structures (principal); R42 Dizziness and giddiness; R11.10 Vomiting, unspecified
CPT/HCPCS: 99282; 96372; J1885

== ENCOUNTER 2019-03-27 05:33 | Emergency (ER) | payer MEDICAID ==
[2019-03-27] MEDS ORDERED: ACETAMINOPHEN 325 MG TABLET PO ONE (08:47)
[2019-03-27 09:29] LABS: A TYPE INFLUENZA AG NEGATIVE (NEGATIVE); B INFLUENZA AG NEGATIVE (NEGATIVE)
--- NOTE | 2019-03-27 10:51 | ER Document Report ---
ED Flu Like - General Chief Complaint: Cough Stated Complaint: FLU LIKE SYMPTOMS Time Seen by Provider: 03/27/19 10:07 Primary Care Provider: STANISLAW FREDERICK CNM [Primary Care Provider] - Follow up as needed Notes: 23-year-old female G2, P1 who is approximately 29 weeks presents with nonproductive cough, congestion, rhinorrhea for the past few days. Patient denies any fever/chills, nausea/vomiting, abdominal pain, pelvic pain, vaginal bleeding/discharge. Patient states she has been exposed to a family member who was positive for flu. TRAVEL OUTSIDE OF THE [place] IN LAST 30 DAYS: No - Related Data Allergies/Adverse Reactions: No Known Allergies Allergy (Verified 03/27/19 05:50) Home Medications: PER-PARISA VIT Past Medical History - Social History Smoking Status: Never Smoker Frequency of alcohol use: None Drug Abuse: None Family History: Reviewed & Not Pertinent Patient has suicidal ideation: No Patient has homicidal ideation: No Neurological Medical History: Reports: Hx Migraine Renal/ Medical History: Denies: Hx Peritoneal Dialysis Past Surgical History: Reports: Hx Tonsillectomy - Immunizations Immunizations up to date: Yes Hx Diphtheria, Pertussis, Tetanus Vaccination: Yes Review of Systems - Review of Systems Notes: Constitutional: Negative for fever. HENT: Positive for congestion and cough. Negative for sore throat. Eyes: Negative for visual changes. Cardiovascular: Negative for chest pain. Respiratory: Negative for shortness of breath. Gastrointestinal: Negative for abdominal pain, vomiting or diarrhea. Genitourinary: Negative for dysuria. Musculoskeletal: Negative for back pain. Skin: Negative for rash. Neurological: Negative for headaches, weakness or numbness. 10 point ROS negative except as marked above and in HPI. Physical Exam - Vital signs Vitals: Temp Pulse Resp BP Pulse Ox 97.9 F 91 16 114/68 100 03/27/19 05:44 03/27/19 05:44 03/27/19 05:44 03/27/19 05:44 03/27/19 05:44 - Notes Notes: GENERAL: Well-appearing, well-nourished and in no acute distress. HEAD: Atraumatic, normocephalic. EYES: Extraocular movements intact, sclera anicteric, conjunctiva are normal. NECK: Normal range of motion, supple without lymphadenopathy or JVD. LUNGS: Breath sounds clear to auscultation bilaterally and equal. No wheezes rales or rhonchi. HEART: Regular rate and rhythm without murmurs, rubs or gallops. ABDOMEN: Soft, nontender. No guarding, no rebound. No masses appreciated. EXTREMITIES: Normal range of motion, no pitting or edema. No clubbing or cyanosis. NEUROLOGICAL: Cranial nerves II through XII grossly intact. Normal speech, n ormal gait. PSYCH: Normal mood, normal affect. SKIN: Warm, Dry, normal turgor, no rashes or lesions noted. Course - Re-evaluation Re-evalutation: 03/27/19 10:56 Spoke to rubin Ward environmental construction engineer, who recommends giving tamiflu. 03/27/19 11:14 well-appearing, nontoxic 23-year-old G2, P1 approximately 29-week female presents with symptoms consistent with upper respiratory infection. Patient was exposed to family member who tested positive for flu. Patient has no related complaints. Lungs are clear to auscultation bilaterally. Regular rate and rhythm. Patient will be sent home with Tamiflu per TILE D[facility]ER recommendation and close follow-up. Patient also given recommendations for various OTC medication she may be able to take. Strict return precautions given. Patient voices understanding and agrees with plan of care. - Vital Signs Vital signs: Temp Pulse Resp BP Pulse Ox 97.9 F 91 16 114/68 100 03/27/19 05:44 03/27/19 05:44 03/27/19 05:44 03/27/19 05:44 03/27/19 05:44 Discharge - Discharge Clinical Impression: Viral URI with cough, Exposure to the flu Qualifiers: Weeks of gestation: 29 weeks Qualified Code(s): Z3A.29 - 29 weeks gestation of Condition: Stable Disposition: HOME, SELF-CARE Instructions: Acetaminophen, Upper Respiratory Illness ([facility]), Viral Syndrome ([facility]) Additional Instructions: Your flu test was negative. However TI[facility] D[facility] recommends that you take the Tamiflu. Please also get the flu shot if you have not already. Please drink plenty of water and rest. For symptom relief: For stuffy nose you can take Sudafed with pseudoephedrine or saline nasal spray, for sore throat you can take Cepacol lozenges or Chloraseptic lozenges, for cough you can take Robitussin products that are alcohol free. Please follow-up with your [facility]LE D[facility]ER in 2 to 3 days. Return to ER for any worsening symptoms, including fever, coughing up blood, worsening pain, abdominal pain, nausea/vomiting, vaginal bleeding/discharge, pelvic pain, or any other symptoms that are concerning to you. Prescriptions: Oseltamivir Phosphate [Tamiflu 75 mg Capsule] 75 mg PO BID #10 capsule Referrals: STANISLAW FREDERICK CNM [Primary Care Provider] - Follow up in 3-5 days
[2019-03-27 13:27] VITALS: BP 120/60
== END 2019-03-27 13:27 | disposition home or self-care (01) ==
LOC: ER 05:33
DX: O99.513 Diseases of the respiratory system complicating pregnancy, third trimester (principal); J06.9 Acute upper respiratory infection, unspecified; B97.89 Other viral agents as the cause of diseases classified elsewhere; Z20.828 Contact with and (suspected) exposure to other viral communicable diseases; O26.893 Other specified pregnancy related conditions, third trimester; R05 Cough; R09.81 Nasal congestion; J34.89 Other specified disorders of nose and nasal sinuses; Z3A.29 29 weeks gestation of pregnancy
CPT/HCPCS: 99283; 87070; 87880; 87804; J3490

== ENCOUNTER 2019-06-01 21:16 | Outpatient (CLI) | payer MEDICAID ==
[2019-06-01 23:16] LABS: APPEARANCE,URINE CLOUDY; BILIRUBIN,URINE NEGATIVE (NEGATIVE); COLOR,URINE AMBER; GLUCOSE, URINE NEGATIVE (NEGATIVE); KETONES,URINE NEGATIVE (NEGATIVE); LEUKOCYTE ESTERASE,URINE LARGE (NEGATIVE); NITRITE,URINE NEGATIVE (NEGATIVE); PROTEIN,URINE 100 mg/dL (NEGATIVE); URINE SPECIFIC GRAVITY 1.029
[2019-06-01 23:36] LABS: URINE AMPHETAMINES SCREEN NEGATIVE; URINE BARBITURATES SCREEN NEGATIVE; URINE BENZODIAZEPINES SCREEN NEGATIVE; URINE COCAINE SCREEN NEGATIVE; URINE MARIJUANA (THC) SCREEN NEGATIVE; URINE METHADONE SCREEN NEGATIVE; URINE PHENCYCLIDINE SCREEN NEGATIVE
[2019-06-01 23:42] LABS: ABSOLUTE LYMPHOCYTES (AUTO) 1.2 10^3/uL (0.5-4.7); ABSOLUTE MONOCYTES (AUTO) 0.5 10^3/uL (0.1-1.4); BASOPHILS % (AUTO) 0.2 % (0-2); EOSINOPHILS % (AUTO) 0.5 % (0-6); HEMATOCRIT 31.4 % (36.0-47.0); HEMOGLOBIN 10.5 g/dL (12.0-15.5); LYMPHOCYTES % (AUTO) 18.4 % (13-45); MEAN CORPUSCULAR HEMOGLOBIN 28.1 pg (27.0-33.4); MEAN CORPUSCULAR HGB CONC 33.6 g/dL (32.0-36.0); MEAN CORPUSCULAR VOLUME 84 fl (80-97); MONOCYTES % (AUTO) 6.8 % (3-13); PLATELET COUNT 106 10^3/uL (150-450); RED BLOOD COUNT 3.75 10^6/uL (3.72-5.28); RED CELL DISTRIBUTION WIDTH 14.9 % (11.5-14.0); SEGMENTED NEUTROPHILS % (AUTO) 74.1 % (42-78); TOTAL CELLS COUNTED % (AUTO) 100 %; WHITE BLOOD COUNT 6.8 10^3/uL (4.0-10.5)
[2019-06-02 00:11] LABS: ALBUMIN 3.5 g/dL (3.5-5.0); ALKALINE PHOSPHATASE 173 U/L (38-126); ANION GAP 10 (5-19); ASPARTATE AMINO TRANSFERASE 23 U/L (14-36); BILIRUBIN,DIRECT 0.3 mg/dL (0.0-0.4); BILIRUBIN,TOTAL 0.9 mg/dL (0.2-1.3); BLOOD UREA NITROGEN 11 mg/dL (7-20); CALCIUM 8.6 mg/dL (8.4-10.2); CARBON DIOXIDE 20 mmol/L (22-30); CHLORIDE 106 mmol/L (98-107); GLUCOSE 84 mg/dL (75-110); TOTAL PROTEIN 7.3 g/dL (6.3-8.2); URIC ACID 5.5 mg/dL (2.5-6.2)
[2019-06-02 00:41] LABS: UR PRO/CREAT RATIO RESULT 0.9 mg/mg (0.0-0.2); URINE CREATININE 21.1 mg/dL (16-327)
--- NOTE | 2019-06-02 02:45 | Non Stress Test Report ---
Non Stress Test Datetime Report Generated by CPN: 06/02/2019 02:44 DEMOGRAPHIC EGA NST: 38.6 INDICATION Indication for Study (NST) Other: RN VITAL SIGNS Temperature - NST: 98.0 Pulse - NST: 78 RESP - NST: 16 NBPSYS NST: 119 NBPDIA NST: 69 MONITORING Monitor Explained: Monitor Explained; Test Explained; Patient Verbalized Understanding Time on Monitor: 06/01/2019 23:46 Time off Monitor: 06/02/2019 00:47 NST Duration: 61 NST INTERVENTIONS NST Interventions: PO Hydration; Reposition Patient Physician Notified NST: Dr. Guillermo BABY A: [id number] BABY A Movement : Present Contraction Frequency : 3-8 FHR Baseline : 115 Accelerations : 15X15 Decelerations : None Variability : Moderate 6-25bpm NST Review: Meets Criteria for Reactive NST NST Review and Verified By : Marcela Henson NST Results: Reactive NST REPORT Report Trigger: Send Report
== END 2019-06-02 02:05 | disposition home or self-care (01) ==
LOC: LC 21:16
PROVIDERS: ATTEND Student in an Organized Health Care Education/Training Program
PROC: 4A1HXCZ Monitoring of Products of Conception, Cardiac Rate, External Approach (ICD-10-PCS; principal; 2019-06-01)
DX: O47.1 False labor at or after 37 completed weeks of gestation (principal); Z3A.38 38 weeks gestation of pregnancy
CPT/HCPCS: 36415; 59025; 80053; 80307; 81005; 82570; 83615; 84156; 84550; 85025

== ENCOUNTER 2019-06-03 00:48 | Outpatient (CLI) | payer MEDICAID ==
[2019-06-03 02:05] LABS: 24 HOUR URINE PROTEIN RESULT 254 mg/day (42-225); URINE PROTEIN 19.5 mg/dL (<12)
--- NOTE | 2019-06-03 04:54 | Non Stress Test Report ---
Non Stress Test Datetime Report Generated by CPN: 06/03/2019 04:54 DEMOGRAPHIC EGA NST: 39.0 INDICATION Indication for Study (NST) Other: Labor check MONITORING Monitor Explained: Monitor Explained; Test Explained; Patient Verbalized Understanding Time on Monitor: 06/03/2019 01:14 Time off Monitor: 06/03/2019 02:22 NST Duration: 68 NST INTERVENTIONS NST Interventions: PO Hydration Physician Notified NST: Dr. Rodriguez Physician Notified NST: Dr. Michael BABY A: [id number] BABY A Movement : Present Contraction Frequency : 7 FHR Baseline : 120 Accelerations : 15X15 Decelerations : None Variability : Moderate 6-25bpm NST Review: Meets Criteria for Reactive NST NST Review and Verified By : HANNAH Hastings NST Results: Reactive NST REPORT Report Trigger: Send Report
== END 2019-06-03 05:30 | disposition home or self-care (01) ==
LOC: LC 00:48
PROVIDERS: ATTEND Obstetrics & Gynecology
PROC: 4A1HXCZ Monitoring of Products of Conception, Cardiac Rate, External Approach (ICD-10-PCS; principal; 2019-06-03)
DX: O47.1 False labor at or after 37 completed weeks of gestation (principal); Z3A.39 39 weeks gestation of pregnancy
CPT/HCPCS: 59025; 84156

== ENCOUNTER 2019-06-05 11:26 | Outpatient (CLI) | payer MEDICAID ==
[2019-06-05 12:33] LABS: BACTERIA (WET MOUNT) 3+ BACTERIA SEEN; EPITHELIALS (WET MOUNT) 3+ EPITHELIALS SEEN; RBCS (WET MOUNT) NO RBCS SEEN; T.VAGINALIS (WET MOUNT) NO TRICHOMONAS SEEN; WBCS (WET MOUNT) RARE WBCS SEEN; YEAST (WET MOUNT) NO YEAST SEEN
[2019-06-05 12:36] LABS: APPEARANCE,URINE SLIGHTLY-CLOUDY; BILIRUBIN,URINE NEGATIVE (NEGATIVE); COLOR,URINE YELLOW; GLUCOSE, URINE NEGATIVE (NEGATIVE); KETONES,URINE NEGATIVE (NEGATIVE); LEUKOCYTE ESTERASE,URINE MODERATE (NEGATIVE); NITRITE,URINE NEGATIVE (NEGATIVE); PROTEIN,URINE 30 mg/dL (NEGATIVE); URINE SPECIFIC GRAVITY 1.025
[2019-06-05 12:52] LABS: URINE AMPHETAMINES SCREEN NEGATIVE; URINE BARBITURATES SCREEN NEGATIVE; URINE BENZODIAZEPINES SCREEN NEGATIVE; URINE COCAINE SCREEN NEGATIVE; URINE MARIJUANA (THC) SCREEN NEGATIVE; URINE METHADONE SCREEN NEGATIVE; URINE PHENCYCLIDINE SCREEN NEGATIVE
--- NOTE | 2019-06-05 13:21 | Non Stress Test Report ---
Non Stress Test Datetime Report Generated by CPN: 06/05/2019 13:21 DEMOGRAPHIC Test Number: 3 EGA NST: 39.2 INDICATION Indication for Study (NST) Other: LABOR CHECK MONITORING Monitor Explained: Monitor Explained; Test Explained; Patient Verbalized Understanding Time on Monitor: 06/05/2019 12:21 Time off Monitor: 06/05/2019 13:18 NST Duration: 57 NST INTERVENTIONS NST Interventions: PO Hydration; Reposition Patient Physician Notified NST: Dr. Wellington BABY A: [id number] BABY A Movement : Present Contraction Frequency : IRREG FHR Baseline : 125 Accelerations : 15X15 Decelerations : None Variability : Moderate 6-25bpm NST Review: Meets Criteria for Reactive NST NST Review and Verified By : TMartin,RN NST Results: Reactive NST REPORT Report Trigger: Send Report
[2019-06-05 14:07] LABS: CHLAM PCR NOT DETECTED (NOT DETECT)
[2019-06-05] MEDS ORDERED: FOSFOMYCIN TROMETHAMINE 3 GM PACKET PO ONE (14:30)
== END 2019-06-05 14:23 | disposition home or self-care (01) ==
LOC: LC 11:26
PROVIDERS: ATTEND Obstetrics & Gynecology
PROC: 4A1HXCZ Monitoring of Products of Conception, Cardiac Rate, External Approach (ICD-10-PCS; principal; 2019-06-05)
DX: O23.43 Unspecified infection of urinary tract in pregnancy, third trimester (principal); Z3A.39 39 weeks gestation of pregnancy
CPT/HCPCS: 59025; 87210; 81005; 80307; 87491; 87591; 84112; J3490

== ENCOUNTER 2019-06-07 00:39 | Inpatient (IN) | payer MEDICAID ==
[2019-06-07] MEDS ORDERED: RINGERS SOLUTION,LACTATED 1,000 ML IV PRN (01:05)
[2019-06-07] MEDS ORDERED: RINGERS SOLUTION,LACTATED 1,000 ML IV ONE (01:30)
[2019-06-07 01:38] LABS: APPEARANCE,URINE CLOUDY; BILIRUBIN,URINE NEGATIVE (NEGATIVE); COLOR,URINE YELLOW; GLUCOSE, URINE NEGATIVE (NEGATIVE); KETONES,URINE NEGATIVE (NEGATIVE); LEUKOCYTE ESTERASE,URINE TRACE (NEGATIVE); NITRITE,URINE NEGATIVE (NEGATIVE); PROTEIN,URINE 100 mg/dL (NEGATIVE); URINE SPECIFIC GRAVITY 1.009; UROBILINOGEN,URINE NEGATIVE mg/dL (<2.0)
[2019-06-07 01:39] LABS: ABSOLUTE LYMPHOCYTES (AUTO) 1.8 10^3/uL (0.5-4.7); ABSOLUTE MONOCYTES (AUTO) 0.6 10^3/uL (0.1-1.4); ABSOLUTE NEUT (AUTO) 5.1 10^3/uL (1.7-8.2); BASOPHILS % (AUTO) 0.1 % (0-2); EOSINOPHILS % (AUTO) 0.6 % (0-6); HEMATOCRIT 32.3 % (36.0-47.0); HEMOGLOBIN 10.6 g/dL (12.0-15.5); LYMPHOCYTES % (AUTO) 23.8 % (13-45); MEAN CORPUSCULAR HEMOGLOBIN 27.6 pg (27.0-33.4); MEAN CORPUSCULAR HGB CONC 32.8 g/dL (32.0-36.0); MEAN CORPUSCULAR VOLUME 84 fl (80-97); MONOCYTES % (AUTO) 7.6 % (3-13); PLATELET COUNT 109 10^3/uL (150-450); RED BLOOD COUNT 3.84 10^6/uL (3.72-5.28); RED CELL DISTRIBUTION WIDTH 15.1 % (11.5-14.0); SEGMENTED NEUTROPHILS % (AUTO) 67.9 % (42-78); TOTAL CELLS COUNTED % (AUTO) 100 %; WHITE BLOOD COUNT 7.5 10^3/uL (4.0-10.5)
--- NOTE | 2019-06-07 01:57 | Admission Physical ---
Datetime Report Generated by CPN: 06/07/2019 01:56 CURRENT ADMISSION Chief Complaint: Uterine Contractions Indication for Induction: Not Applicable Admit Impression : Term, Intrauterine ; Ruptured Membranes Admit Plan: Admit to Unit ALLERGIES Medication Allergies: No Medication Allergies: No Known Allergies (06/05/2019) Latex: No Latex Allergies Food Allergies: denies Environmental Allergies: denies OBSTETRICAL HISTORY EDC: 06/10/2019 00:00 : 2 Para: 1 Term: 1 : 0 SAB: 0 IAB: 0 Ectopic: 0 Livin Cesareans: 0 VBACs: 0 Multiple Births: 0 Gestational Diabetes: No Rh Sensitization: No Incompetent Cervix: No HAYLEY: No Infertility: No ART Treatment: No Uterine Anomaly: No IUGR: No Hx Previous C/S: No Macrosomia: No Hx Loss/Stillborn: No PIH: Yes Hx : No Placenta Previa/Abruption: No Depression/PP Depression: No PTL/PROM: No Post Hemorrhage: Yes Current Procedures: Ultrasound; NST Obstetrical History Comments: g1-2017, , female, hemmorhage required transfusion and IOL for GHTN g2-current SEE RECORDS Alcohol: No Marijuana : No Cocaine: No Other Illicit Drugs: No Cigarettes: Never Smoker. 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 Surgery: No Heart Disease: No Hosp/Surgery: Yes Autoimmune Disorder: No Anesthetic Complications: No Kidney Disease: No Abnormal Pap Smear: No Neuro/Epilepsy: No Psychiatric Disorders: No Other Medical Diseases: No Hepatitis/Liver Disease: No Significant Family History: No Varicosities/Phlebitis: No Trauma/Violence : No Thyroid Dysfunction: No Medical History Comments: x 1, blood transfusion after last delivery, GHTN in first INFECTIOUS HISTORY Gonorrhea: No Genital Herpes: No Chlamydia: No Tuberculosis: No Syphilis: No Hepatitis: No HIV/AIDS Exposure: No Rash or Viral Illness: No HPV: No PHYSICAL EXAM General: Normal HEENT: Normal Neurologic: Normal Thyroid: Normal Heart: Normal Lungs: Normal Breast: Deferred Back: Normal Abdomen: Normal Genitourinary Exam: Normal Extremities: Normal DTRs: Normal Pelvic Type: Adequate Vital Signs: Reviewed VAGINAL EXAM Dilatation: 2 Effacement: 70 Station: 0 MEMBRANES Pooling: Positive Membranes: Ruptured FETUS A EGA: 39.4 Monitoring: External US FHR- Baseline: 120 Variability: Absent - Undetectable Decelerations: None FHR Category: Category I Presentation: Vertex Admit Comment: admit for srom PLANS FOR LABOR AND DELIVERY Labor and Delivery: None Pain Management: Natural; Medications Feeding Preference: Breast Benefit of Breast Feed Discussed: Yes Circumcision: Yes INFORMED CONSENT Signature: with User ID: [email or web address]
[2019-06-07] MEDS ORDERED: LIDOCAINE 1% INJ-PF (10 MG/ML) 30 ML SDV ONE (02:08)
[2019-06-07] MEDS ORDERED: MISOPROSTOL 0.2 MG TABLET ONE (02:08)
[2019-06-07] MEDS ORDERED: OXYTOCIN 10 UNIT/ML VIAL ONE (02:08)
[2019-06-07 02:09] LABS: URINE AMPHETAMINES SCREEN NEGATIVE; URINE BARBITURATES SCREEN NEGATIVE; URINE BENZODIAZEPINES SCREEN NEGATIVE; URINE COCAINE SCREEN NEGATIVE; URINE MARIJUANA (THC) SCREEN NEGATIVE; URINE METHADONE SCREEN NEGATIVE; URINE PHENCYCLIDINE SCREEN NEGATIVE
[2019-06-07] MEDS ORDERED: OXYTOCIN/NORMAL SALINE 20 UNIT/1,000 ML RTUINJ ONE ×2 (02:09→06:29)
[2019-06-07] MEDS ORDERED: PROMETHAZINE HCL INJ 25 MG/1 ML VIAL ONE (03:23)
[2019-06-07] MEDS ORDERED: MORPHINE SULFATE 10 MG/ML INJ ONE (03:24)
[2019-06-07] MEDS ORDERED: PROMETHAZINE HCL INJ 25 MG/1 ML VIAL IV ONE (04:30)
[2019-06-07] MEDS ORDERED: MORPHINE SULFATE 10 MG/ML INJ IV ONE (04:30)
[2019-06-07] MEDS ORDERED: OXYTOCIN/NORMAL SALINE 20 UNIT/1,000 ML RTUINJ IV PRN (04:37)
[2019-06-07] MEDS ORDERED: BENZOCAINE/MENTHOL AEROSOL SPRAY 56 ML TOP PRN (04:37)
[2019-06-07] MEDS ORDERED: DIPHENHYDRAMINE HCL 25 MG CAPSULE PO PRN (04:37)
[2019-06-07] MEDS ORDERED: MEASLES,MUMPS&RUBELLA VACC/PF 0.5 ML VIAL SUBCUT PRN (04:37)
[2019-06-07] MEDS ORDERED: ZOLPIDEM TARTRATE 5 MG TABLET PO PRN (04:37)
[2019-06-07] MEDS ORDERED: ACETAMINOPHEN 650 MG SUPP.RECT PR PRN (04:37)
[2019-06-07] MEDS ORDERED: DIPH/PERTUSS(ACELL)/TETANUS VAC/PF 0.5 ML SYR (>=10YO) IM PRN (04:37)
[2019-06-07] MEDS ORDERED: PSEUDOEPHEDRINE HCL 30 MG TABLET PO PRN (04:37)
[2019-06-07] MEDS ORDERED: MAGNESIUM HYDROXIDE SUSP 30 ML UDCUP PO PRN (04:37)
[2019-06-07] MEDS ORDERED: DIBUCAINE 1% OINTMENT 28 GM TP PRN (04:37)
[2019-06-07] MEDS ORDERED: PROMETHAZINE HCL 25 MG TABLET PO PRN (04:37)
[2019-06-07] MEDS ORDERED: PROMETHAZINE HCL 25 MG SUPP.RECT PR PRN (04:37)
[2019-06-07] MEDS ORDERED: NA PHOS,M-B/NA PHOS,DI-BA (ADULT) 133 ML ENEMA PR PRN (04:37)
[2019-06-07] MEDS ORDERED: PROMETHAZINE HCL INJ 25 MG/1 ML VIAL IV PRN (04:37)
[2019-06-07] MEDS ORDERED: GLYCERIN/WITCH HAZEL LEAF 1 EACH MED..WIPE TP PRN (04:37)
[2019-06-07] MEDS: MISOPROSTOL 0.2 MG TABLET PO SCH ×3 (05:10→18:06)
[2019-06-07] MEDS ORDERED: IBUPROFEN 800 MG TABLET ONE (05:20)
[2019-06-07] MEDS: IBUPROFEN 800 MG TABLET PO SCH ×3 (05:34→22:08)
--- NOTE | 2019-06-07 05:56 | Delivery Summary ---
Del Sum A-C Datetime Report Generated by CPN: 06/07/2019 05:55 DELIVERY PERSONNEL DELIVERY PERSONNEL: [id number] Delivery Doctor:: Manjula Morataya MD Labor and Delivery Nurse:: Shoshana Hart RNartist manager Nurse:: Hoda Henson RNC Nursery Nurse:: Darling Barber RN Senior Clinical Data Manager/GENERAL ADMINISTRATOR: Shelli Ross, ST MATERNAL INFORMATION Delivery Anesthesia: None Medications After Delivery: Pitocin Drip 20 Units/1000ml NSS; Other-Please Comment Meds After Delivery Comment: cytotec 200mcg po Estimated Blood Loss (ml): 250 Delivery QBL: 200 Maternal Complications: None LABOR SUMMARY EDC: 06/10/2019 00:00 No. Babies in Womb: 1 Attempted: No Labor Anesthesia: None LABOR INFORMATION Reason for Induction: Not Applicable Onset of Labor: 06/07/2019 02:37 Complete Dilatation: 06/07/2019 04:15 Oxytocin: N/A Group B Beta Strep: negative Antibiotics # of Doses: 0 Antibiotics Time of Last Dose: 0 Name of Antibiotic Given: 0 Steroids Given: None Reason Steroids Not Administered: Not Applicable MEMBRANES Membranes Rupture Method: Spontaneous Rupture of Membranes: 06/06/2019 23:40 Length of Rupture (hr): 4.80 Amniotic Fluid Color: Clear Amniotic Fluid Amount: Moderate STAGES OF LABOR Stage 1 hr: 1 Stage 1 min: 38 Stage 2 hr: 0 Stage 2 min: 13 Stage 3 hr: 0 Stage 3 min: 4 Total Time in Labor hr: 1 Total Time in Labor min: 55 VAGINAL DELIVERY Episiotomy: None Laceration #1: None Laceration Extension #1: N/A Laceration Repair: Not Applicable Laceration Repair Note: small abrasions not in need of repair Sponge Count Correct: N/A; Vaginal Sweep Performed Sharps Count Correct: Yes CSECTION DELIVERY Primary Indication: N/A Secondary Indication: N/A CSection Incision: N/A BABY A INFORMATION Delivery Date/Time: 06/07/2019 04:28 Method of Delivery: Vaginal Nurse Controlled Delivery: No Born in Route : No : N/A Forceps: N/A Vacuum Extraction: N/A Shoulder Dystocia : No PRESENTATION/POSITION BABY A Presentation: Cephalic Cephalic Presentation: Vertex Vertex Position: Left Occipital Anterior Breech Presentation: N/A PLACENTA INFORMATION BABY A Placenta Delivery Time : 06/07/2019 04:32 Placenta Method of Delivery: Spontaneous Placenta Status: Delivered SCORES BABY A Heart Rate 1 min: >100 bpm Resp Effort 1 min: Good Cry Reflex Irritability 1 min: Cough or Sneeze or Pulls Away Muscle Tone 1 min: Active Motion Color 1 min: Blue/Pale Resuscitation Effort 1 min: Tactile Stimulation SCORE 1 MIN: 8 Heart Rate 5 min: >100 bpm Resp Effort 5 min: Good Cry Reflex Irritability 5 min: Cough or Sneeze or Pulls Away Muscle Tone 5 min: Active Motion Color 5 min: Body [place], Extremities Blue Resuscitation Effort 5 min: Tactile Stimulation SCORE 5 MIN: 9 INFANT INFORMATION BABY A Gestational Age at Delivery: 39.4 Gestational Status: Full Term- 39- 40.6 Weeks Outcome : Liveborn Condition : Stable Infant Sex: Male IDENTIFICATION BABY A Infant Verification Date/Time: 06/07/2019 04:37 ID Band Number: [id number] Mother's Name Verified: Yes RN Verifying Infant: C Barber RN/D bellavance RN WEIGHT/LENGTH BABY A Infant Birthweight (gm): 3170 Weight (lb): 7 Weight (oz): 0 Length (in): 19.50 Infant Length (cm): 49.53 CORD INFORMATION BABY A No. Cord Vessels: 3 Nuchal Cord : N/A Cord Blood Taken: Yes-For Storage (Mom's Blood type +) Suction: Mouth; Nose ASSESSMENT BABY A Complications: None Physical Findings at Delivery: Within Normal Limits Infant Respirations: Appears Normal Skin to Skin: Yes Skin to Skin Time (min): 20 Edge Cutting Machine Operator/ALS Called : No Care By: Darling Barber RN Transferred To: Remains with Mother SIGNATURES Signature: with User ID: [email or web address]
[2019-06-07] MEDS: FERROUS SULFATE 325 MG TABLET PO SCH ×2 (10:40→18:05)
[2019-06-07] MEDS: PRENATAL VITAMIN W DHA CAPSULE PO SCH (10:40)
[2019-06-07] MEDS: SENNOSIDES/DOCUSATE 8.6-50 MG 1 EACH TABLET PO SCH (10:40)
[2019-06-07] MEDS: DOCUSATE SODIUM 100 MG CAPSULE PO SCH ×2 (10:40→18:05)
[2019-06-07] MEDS: FAMOTIDINE 20 MG TABLET PO SCH ×2 (10:47→21:56)
[2019-06-07] MEDS: ACETAMINOPHEN WITH CODEINE #3 TABLET PO PRN ×2 (15:58→21:56)
[2019-06-07] MEDS ORDERED: FAMOTIDINE 20 MG TABLET ONE (21:32)
[2019-06-07] MEDS ORDERED: BUTALB/ACETAMINOPHEN/CAFFEINE 1 TAB EACH PO ONE (22:00)
[2019-06-08] MEDS: MISOPROSTOL 0.2 MG TABLET PO SCH
[2019-06-08] MEDS: IBUPROFEN 800 MG TABLET PO SCH ×3 (05:33→22:15)
[2019-06-08] MEDS: ACETAMINOPHEN WITH CODEINE #3 TABLET PO PRN ×2 (05:33→17:56)
[2019-06-08 07:27] LABS: HEMATOCRIT 28.1 % (36.0-47.0); HEMOGLOBIN 9.3 g/dL (12.0-15.5); MEAN CORPUSCULAR HGB CONC 33.2 g/dL (32.0-36.0); MEAN CORPUSCULAR VOLUME 84 fl (80-97); PLATELET COUNT 103 10^3/uL (150-450); RED BLOOD COUNT 3.33 10^6/uL (3.72-5.28); WHITE BLOOD COUNT 8.7 10^3/uL (4.0-10.5)
[2019-06-08] MEDS: DOCUSATE SODIUM 100 MG CAPSULE PO SCH ×2 (09:17→17:53)
[2019-06-08] MEDS: PRENATAL VITAMIN W DHA CAPSULE PO SCH (09:17)
[2019-06-08] MEDS: SENNOSIDES/DOCUSATE 8.6-50 MG 1 EACH TABLET PO SCH (09:17)
[2019-06-08] MEDS: FERROUS SULFATE 325 MG TABLET PO SCH ×2 (09:17→17:53)
[2019-06-08] MEDS: FAMOTIDINE 20 MG TABLET PO SCH ×2 (09:25→22:12)
--- NOTE | 2019-06-08 11:06 | PDOC PROGRESS REPORT ---
Subjective-OB Progress Note for:: 06/08/19 Subjective: reports bleeding slowing, pain controlled with current meds. denies needs Physical Exam (OB) Vital Signs: Temp Pulse Resp BP Pulse Ox 97.7 F 72 17 130/95 H 100 06/08/19 07:34 06/08/19 07:34 06/08/19 07:34 06/08/19 07:34 06/08/19 07:34 Intake & Output 06/07/19 06/08/19 06/09/19 06:59 06:59 06:59 Intake Total 240 Balance 240 Weight 83 kg - Abdomen Description: Soft, Round Hernia Present: No Fundal Description: Firm, Midline Fundal Height: u/u - u/2 - Abdominal Distension: No distension Tenderness: Nontender - Extremities Lower extremities: Brittanie's sign - neg Calf: Normal, Nontender Objective-Diagnostic Laboratory: 06/08/19 06:57 06/08/19 06:57 WBC 8.7 RBC 3.33 L Hgb 9.3 L Hct 28.1 L MCV 84 MCH 28.0 MCHC 33.2 RDW 15.0 H Plt Count 103 L Assessment and Plan(PN) - Assessment and Plan (1) Acute blood loss anemia Is this a current diagnosis for this admission?: Yes (2) Gestational hypertension Qualifiers: Is this a current diagnosis for this admission?: Yes (3) Positive GBS test Is this a current diagnosis for this admission?: Yes (4) Vaginal delivery Is this a current diagnosis for this admission?: Yes - Time Spent with Patient Time with patient: Less than 15 minutes - Disposition Anticipated Discharge: Home Within: within 24 hours
[2019-06-09] MEDS: IBUPROFEN 800 MG TABLET PO SCH ×2 (07:53→15:07)
[2019-06-09] MEDS: FERROUS SULFATE 325 MG TABLET PO SCH (10:06)
[2019-06-09] MEDS: PRENATAL VITAMIN W DHA CAPSULE PO SCH (10:06)
[2019-06-09] MEDS: SENNOSIDES/DOCUSATE 8.6-50 MG 1 EACH TABLET PO SCH (10:06)
[2019-06-09] MEDS: FAMOTIDINE 20 MG TABLET PO SCH (10:06)
[2019-06-09] MEDS: DOCUSATE SODIUM 100 MG CAPSULE PO SCH (10:06)
[2019-06-09] MEDS: ACETAMINOPHEN WITH CODEINE #3 TABLET PO PRN (11:08)
--- NOTE | 2019-06-09 12:42 | PDOC DISCHARGE SUMMARY ---
Impression - Admit/DC Date/PCP Admission Date/Primary Care Provider: 06/07/19 01:05 HUMA ARANA, Discharge Date: 06/09/19 - Discharge Diagnosis (1) Acute blood loss anemia Is this a current diagnosis for this admission?: Yes (2) Anemia complicating , third trimester Is this a current diagnosis for this admission?: Yes (3) Gestational hypertension Is this a current diagnosis for this admission?: Yes (4) Positive GBS test Is this a current diagnosis for this admission?: Yes (5) anemia Is this a current diagnosis for this admission?: Yes (6) SROM (spontaneous rupture of membranes) Is this a current diagnosis for this admission?: Yes (7) Vaginal delivery Is this a current diagnosis for this admission?: Yes - Assessment Summary: pt s/p ppd2. Doing well, no concerns, denies s/s of pre-e, will present to the office on Friday for BP check. [facility] earlier prn. - Additional Information Resuscitation Status: Full Code Discharge Diet: As Tolerated, Regular Discharge Activity: Activity As Tolerated, Balance Activity w/Rest, No Lifting Over 10 Pounds, Pelvic Rest, No tub bath, Walk Frequently [facility] - 06/11/19 1:00 pm (CALL THE OFFICE FOR ANY QUESTIONS OR CONCERNS.) Prescriptions: Ibuprofen [Motrin 800 mg Tablet] 800 mg PO Q8HP PRN #20 tablet PRN Reason: For Pain Scale 1-3 Docusate Sodium [Colace 100 mg Capsule] 100 mg PO BID #60 capsule Ferrous Sulfate [Feosol 325 mg Tablet] 325 mg PO BID #60 tablet Home Medications: Pnv No.121/Iron/Folic Acid [ Multivitamin Tablet] 1 tab PO DAILY 07/04/17 Acetaminophen [Tylenol 325 mg Tablet] 325 mg PO PRN PRN 06/05/19 Docusate Sodium [Colace 100 mg Capsule] 100 mg PO BID #60 capsule 06/09/19 Ferrous Sulfate [Feosol 325 mg Tablet] 325 mg PO BID #60 tablet 06/09/19 Ibuprofen [Motrin 800 mg Tablet] 800 mg PO Q8HP PRN #20 tablet 06/09/19 Results Laboratory Results: WBC 8.7 10^3/uL (4.0-10.5) 06/08/19 06:57 RBC 3.33 10^6/uL (3.72-5.28) L 06/08/19 06:57 Hgb 9.3 g/dL (12.0-15.5) L 06/08/19 06:57 Hct 28.1 % (36.0-47.0) L 06/08/19 06:57 MCV 84 fl (80-97) 06/08/19 06:57 MCH 28.0 pg (27.0-33.4) 06/08/19 06:57 MCHC 33.2 g/dL (32.0-36.0) 06/08/19 06:57 RDW 15.0 % (11.5-14.0) H 06/08/19 06:57 Plt Count 103 10^3/uL (150-450) L 06/08/19 06:57 Lymph % (Auto) 23.8 % (13-45) 06/07/19 01:24 [place] % (Auto) 7.6 % (3-13) 06/07/19 01:24 Eos % (Auto) 0.6 % (0-6) 06/07/19 01:24 Baso % (Auto) 0.1 % (0-2) 06/07/19 01:24 Absolute Neuts (auto) 5.1 10^3/uL (1.7-8.2) 06/07/19 01:24 Absolute Lymphs (auto) 1.8 10^3/uL (0.5-4.7) 06/07/19 01:24 Absolute Monos (auto) 0.6 10^3/uL (0.1-1.4) 06/07/19 01:24 Absolute Eos (auto) 0.0 10^3/uL (0.0-0.6) 06/07/19 01:24 Absolute Basos (auto) 0.0 10^3/uL (0.0-0.2) 06/07/19 01:24 Seg Neutrophils % 67.9 % (42-78) 06/07/19 01:24 Urine Color YELLOW 06/07/19 00:49 Urine Appearance CLOUDY 06/07/19 00:49 Urine pH 7.0 (5.0-9.0) 06/07/19 00:49 Ur Specific [place] 1.009 06/07/19 00:49 Urine Protein 100 mg/dL (NEGATIVE) H 06/07/19 00:49 Urine Glucose (UA) NEGATIVE mg/dL (NEGATIVE) 06/07/19 00:49 Urine Ketones NEGATIVE mg/dL (NEGATIVE) 06/07/19 00:49 Urine Blood LARGE (NEGATIVE) H 06/07/19 00:49 Urine Nitrite NEGATIVE (NEGATIVE) 06/07/19 00:49 Urine Bilirubin NEGATIVE (NEGATIVE) 06/07/19 00:49 Urine Urobilinogen NEGATIVE mg/dL (<2.0) 06/07/19 00:49 Ur Leukocyte Esterase TRACE (NEGATIVE) H 06/07/19 00:49 Urine Ascorbic Acid NEGATIVE (NEGATIVE) 06/07/19 00:49 Urine Opiates Screen NEGATIVE 06/07/19 00:49 Urine Methadone Screen NEGATIVE 06/07/19 00:49 Ur Barbiturates Screen NEGATIVE 06/07/19 00:49 Ur Phencyclidine Scrn NEGATIVE 06/07/19 00:49 Ur Amphetamines Screen NEGATIVE 06/07/19 00:49 U Benzodiazepines Scrn NEGATIVE 06/07/19 00:49 Urine Cocaine Screen NEGATIVE 06/07/19 00:49 U Marijuana (THC) Screen NEGATIVE 06/07/19 00:49 RPR NONREACTIVE (NONREACTIVE) 06/07/19 01:24 Blood Type A POSITIVE 06/07/19 01:24 Antibody Screen NEGATIVE 06/07/19 01:24
[2019-06-09 12:47] VITALS: BP 140/78
== END 2019-06-09 17:16 | disposition home or self-care (01) | DRG 806 ==
LOC: LC 00:39 → LR 01:05 → 2S 08:26
PROVIDERS: ADMIT Obstetrics & Gynecology; ATTEND Obstetrics & Gynecology
PROC: 10E0XZZ Delivery of Products of Conception, External Approach (ICD-10-PCS; principal; 2019-06-07)
PROC: 3E0234Z Introduction of Serum, Toxoid and Vaccine into Muscle, Percutaneous Approach (ICD-10-PCS; 2019-06-07)
DX: O13.4 Gestational [pregnancy-induced] hypertension without significant proteinuria, complicating childbirth (principal); D62 Acute posthemorrhagic anemia; Z37.0 Single live birth; O90.81 Anemia of the puerperium; O99.824 Streptococcus B carrier state complicating childbirth; Z28.21 Immunization not carried out because of patient refusal; Z23 Encounter for immunization; Z3A.39 39 weeks gestation of pregnancy
CPT/HCPCS: 36415; 59025; 80307; 81005; 85025; 85027; 86592; 86850; 86900; 86901; J2270; J2550; J2590; J3490

== ENCOUNTER → 2019-10-13 | Outpatient (CLI) | payer MEDICAID ==
--- NOTE | 2019-10-13 14:27 | ER RDC ASSESSMENT REPORT ---
Intake - In the Last 14 days Have you traveled outside [place]?: No Have you been in close contact with someone CONFIRMED: Yes Worked in Healthcare?: No - Symptoms Subjective Fever([place] feverish): No Chills: No Muscule Aches: No Runny Nose: No Sore Throat: No Cough (New or worsening chronic cough): No Shortness of breath: No Nausea or Vomiting: No Headache: No Abdominal Pain: No Diarrhea(3 or more loose stools in last 24 hours): No - Do you have any of the following Chronic lung disease: Asthma or emphysema or COPD: No Cystic Fibrosis: No Diabetes: No High Blood Pressure: No Cardiovascular Disease: No Chronic Kidney Disease: No Chronic Liver Disease: No Chronic blood disorder like Sickle Cell Disease: No Weak immune system due to disease or medication: No Neurologic condition that limits movement: No Developmental delay - Moderate to Severe: No Recent (within past 2 weeks) or current : No Morbid Obesity (>100 pounds over ideal weight): No - Objective Temperature: 98.8 F Pulse Rate: 101 Respiratory Rate: 16 Blood Pressure: 125/68 O2 Sat by Pulse Oximetry: 96 Objective: Given above, testing performed: covid Disposition: Home; Selfcare General - General Chief Complaint: Other Time Seen by Provider: 10/13/19 14:10 Mode of Arrival: Ambulatory Information source: Patient - HPI Notes: Patient presents to clinic for COVID-19 testing. They have no significant medical history. Patient is reporting exposure to COVID positive relative and would like to be tested. Patient is asymptomatic. They deny any cough, shortness of breath, fever, chills, muscle aches, rhinorrhea, sore throat, nausea or vomiting, headache, abdominal pain or diarrhea. Patient has no acute medical concerns - Related Data Allergies/Adverse Reactions: No Known Allergies Allergy (Verified 06/05/19 11:40) Past Medical History - General Information source: Patient - Social History Smoking Status: Never Smoker Family History: Reviewed & Not Pertinent - Past Medical History Cardiac Medical History: Reports: None Pulmonary Medical History: Reports: None EENT Medical History: Reports: None Neurological Medical History: Reports: Hx Migraine Endocrine Medical History: Reports: None Renal/ Medical History: Reports: None. Denies: Hx Peritoneal Dialysis Malignancy Medical History: Reports: None GI Medical History: Reports: None Musculoskeletal Medical History: Reports None Skin Medical History: Reports None Psychiatric Medical History: Reports: None Traumatic Medical History: Reports: None Infectious Medical History: Reports: None Past Surgical History: Reports: Hx Tonsillectomy Physical Exam - General General appearance: Appears well, Alert In distress: None Notes: PHYSICAL EXAMINATION: GENERAL: Well-appearing and in no acute distress. HEAD: Atraumatic, normocephalic. EYES: sclera anicteric, conjunctiva are normal. ENT: nares patent. Moist mucous membranes. NECK: Normal range of motion, supple without lymphadenopathy LUNGS: CTAB and equal. No wheezes rales or rhonchi. HEART: Regular rate and rhythm without murmurs ABDOMEN: Soft, nontender, normal bowel sounds, no guarding. EXTREMITIES: Normal range of motion, no pitting edema. No cyanosis. NEUROLOGICAL: Cranial nerves grossly intact. Normal speech. PSYCH: Normal mood, normal affect. SKIN: Warm, Dry, normal turgor, no rashes or lesions noted Patient Education/Counseling Counseling/Education: Patient presents for COVID 19 testing after exposure to relative who is confirmed positive for COVID 19. Patient remains asymptomatic at this time. Patient does not have emergency worrying symptoms such as difficulty breathing, shortness of breath, chest pain, pressure, confusion or cyanosis. Patient appears suitable for discharge as vital signs are stable and patient is nontoxic in appearance. Good return precautions have been discussed with patient, patient verbalized understanding and is agreeable with discharge plan of care at this time. Guidance for worsening S/SX: As a person under investigation for Covid 19, the [place] department of Health and Human Services, division of public health advises you to adhere to the following guidance until your test results are reported to you. If your test result is positive, you will receive additional information from your provider and your local health department at that time. Remain at home until you are cleared by the health provider or public health authorities. Keep a log of visitors to your home, notify any visitors to your home of your isolation status. If you plan to move to a new address or leave the county, notify the local health department in your County. Call your doctor or seek care if you have an urgent medical need. Before seeking medical care, call ahead to get instructions from the provider before arriving at the medical office clinic or hospital. Notify them that you are being tested for the virus that causes Covid 19 so that arrangements can be made, as necessary, to prevent transmission to others in the healthcare setting. Next, notify the local health department in your county. If a medical emergency arises and you need to call 911, inform the first responders that you are being tested for the virus that causes Covid 19. Next, notify the local health department in your county. RDC Discharge - Discharge Clinical Impression: Encounter for screening laboratory testing for COVID-19 virus in asymptomatic patient Condition: Good Disposition: Home; Selfcare
[2019-10-13 14:50] VITALS: BP 125/68
== END ==
LOC: RDC 13:21
PROVIDERS: ATTEND Registered Nurse
DX: Z20.828 Contact with and (suspected) exposure to other viral communicable diseases (principal)
CPT/HCPCS: 87635; C9803; 99201; 99211

== ENCOUNTER 2019-12-12 09:02 | Emergency (ER) | payer MEDICAID ==
--- NOTE | 2019-12-12 09:41 | ER Document Report ---
HPI - HPI Notes: Otherwise healthy 24-year-old female presents emergency department chief complaint of cough, sore throat and congestion that began yesterday. Patient denies any fever, chills, nausea, vomiting, denies any known exposure to COVID- 19. Patient reports she tested negative for COVID-19 2 weeks ago. She has not taken any medications for her symptoms. - ROS Systems Reviewed and Negative: Yes All other systems reviewed and negative - CONSTITUTIONAL Constitutional: DENIES: Fever, Chills - EENT EENT: REPORTS: Sore Throat, Nasal Drainage-Clear, Congestion - CARDIOVASCULAR Cardiovascular: DENIES: Chest pain - RESPIRATORY Respiratory: REPORTS: Coughing - REPRODUCTIVE Reproductive: REPORTS: : Past Medical History - General Information source: Patient - Social History Smoking Status: Never Smoker Frequency of alcohol use: None Drug Abuse: None Family History: Reviewed & Not Pertinent - Medical History Medical History: Negative Neurological Medical History: Reports: Hx Migraine Renal/ Medical History: Denies: Hx Peritoneal Dialysis Surgical Hx: Negative Past Surgical History: Reports: Hx Tonsillectomy - Immunizations Immunizations up to date: Yes Hx Diphtheria, Pertussis, Tetanus Vaccination: Yes Vertical Provider Document - CONSTITUTIONAL Notes: PHYSICAL EXAMINATION: GENERAL: Well-appearing, well-nourished and in no acute distress. HEAD: Atraumatic, normocephalic. EYES: Pupils equal round and reactive to light, extraocular movements intact, conjunctiva are normal. ENT: Nares patent, oropharynx erythematous without exudates. No tonsillar swelling, uvula midline. No evidence of [employer]. Moist mucous membranes. NECK: Normal range of motion, supple without lymphadenopathy LUNGS: Breath sounds clear to auscultation bilaterally and equal. No wheezes rales or rhonchi. HEART: Regular rate and rhythm without murmurs ABDOMEN: Soft, nontender, nondistended abdomen. No guarding, no rebound. No masses appreciated. Female : deferred Musculoskeletal: Normal range of motion, no pitting or edema. No cyanosis. NEUROLOGICAL: Cranial nerves grossly intact. Normal speech, normal gait. Normal sensory, motor exams PSYCH: Normal mood, normal affect. SKIN: Warm, Dry, normal turgor, no rashes or lesions noted. - INFECTION CONTROL TRAVEL OUTSIDE OF THE [place] IN LAST 30 DAYS: No Course - Re-evaluation Re-evalutation: 12/12/19 10:55 Laboratory 12/12/19 09:38 Group A Strep Rapid POSITIVE - Vital Signs Vital signs: Temp Pulse Resp BP Pulse Ox 98.5 F 100 18 124/83 98 12/12/19 09:13 12/12/19 09:13 12/12/19 09:13 12/12/19 09:13 12/12/19 09:13 Discharge - Discharge Clinical Impression: Strep pharyngitis Condition: Stable Disposition: HOME, SELF-CARE Additional Instructions: Strep Throat Your sore throat is due to the streptococcus germ (strep throat). Strep throat usually makes you feel quite ill with fever and aches, headache, swollen sore throat, and tender bumps under the angles of the jaw. Strep throat requires antibiotic treatment. Although the sore throat may go away by itself, complications such as rheumatic fever, kidney disease, or throat abscess can occur. We usually prescribe antibiotics by mouth. Be sure to take the medicine until it's gone. If you stop early, the strep may come back. If you are vomiting, are severely ill, or can't remember to take pills, we can give you an antibiotic shot. Take acetaminophen or ibuprofen for pain and fever. Sip frequent clear liquids, or use popsicles or ice chips. Anesthetic sprays or lozenges may help. Make sure the air in the room is not too dry. Avoid using decongestants or antihistamines. Call the doctor if there is no improvement in three days, or if you have difficulty breathing, increasing throat pain, high fever, rash, or frequent vomiting. You were given a shot of penicillin here in the emergency department. This is a one-time treatment for the strep. You do not need to take any additional antibiotics. Take other medications as prescribed. Follow-up with your doctor if not improving or return to the emergency department if worsening as outlined above. Prescriptions: Benzonatate [Tessalon Perles 100 mg Capsule] 1 - 2 tab PO Q8HP PRN #30 capsule PRN Reason: Prednisone [Deltasone 20 mg Tablet] 3 tab PO DAILY 5 Days #15 tablet Forms: Return to Work Referrals: HUMA ARANA DO [Primary Care Provider] - Follow up as needed
[2019-12-12] MEDS ORDERED: PENICILLIN G BENZATHINE 1.2 MILLION UNIT/2 ML DISP.SYRIN IM ONE (10:37)
[2019-12-12 11:20] VITALS: BP 121/76
== END 2019-12-12 11:20 | disposition home or self-care (01) ==
LOC: ER 09:02
DX: O99.519 Diseases of the respiratory system complicating pregnancy, unspecified trimester (principal); J02.0 Streptococcal pharyngitis; O26.899 Other specified pregnancy related conditions, unspecified trimester; R05 Cough; R09.89 Other specified symptoms and signs involving the circulatory and respiratory systems; Z3A.00 Weeks of gestation of pregnancy not specified
CPT/HCPCS: 99284; 96372; 87880; J0561

== ENCOUNTER 2020-01-13 21:00 | Emergency (ER) | payer MEDICAID ==
[2020-01-13] MEDS ORDERED: ACETAMINOPHEN 325 MG TABLET PO ONE (21:58)
--- NOTE | 2020-01-13 22:00 | ER Document Report ---
ED Medical Screen (RME) - General Chief Complaint: Flu Symptoms Stated Complaint: CHILLS/HEADACHE.ABDOMINAL PAIN/VOMITING Time Seen by Provider: 01/13/20 21:55 Primary Care Provider: HUMA ARANA DO [Primary Care Provider] - Follow up as needed Notes: Patient is a 24-year-old female presents emergency flulike symptoms. Patient states that she has had a headache, body aches, chills since yesterday. Patient is currently breast-feeding. Patient son is having similar symptoms. He also admits to a cough. Exam: Cough noted. Patient will be tested for flu and Covid. I have greeted and performed a rapid initial assessment of this patient. A comprehensive ED assessment and evaluation of the patient, analysis of test results and completion of medical decision making process will be conducted by an additional ED providers. TRAVEL OUTSIDE OF THE [place] IN LAST 30 DAYS: No - Related Data Allergies/Adverse Reactions: No Known Allergies Allergy (Verified 01/13/20 21:56) Home Medications: ENFIDIPINE Past Medical History - Social History Frequency of alcohol use: None Drug Abuse: None - Past Medical History Cardiac Medical History: Reports: Hx Hypertension Neurological Medical History: Reports: Hx Migraine Renal/ Medical History: Denies: Hx Peritoneal Dialysis Psychiatric Medical History: Reports: Hx Depression Past Surgical History: Reports: Hx Tonsillectomy - Immunizations Immunizations up to date: Yes Hx Diphtheria, Pertussis, Tetanus Vaccination: Yes Physical Exam - Vital signs Vitals: Temp Pulse Resp BP Pulse Ox 99.2 F 122 H 16 134/76 H 98 01/13/20 21:32 01/13/20 21:32 01/13/20 21:32 01/13/20 21:32 01/13/20 21:32 Course - Vital Signs Vital signs: Temp Pulse Resp BP Pulse Ox 99.2 F 122 H 16 134/76 H 98 01/13/20 21:32 01/13/20 21:32 01/13/20 21:32 01/13/20 21:32 01/13/20 21:32 Doctor's Discharge - Discharge Referrals: HUMA ARANA DO [Primary Care Provider] - Follow up as needed
[2020-01-14 00:26] LABS: ABSOLUTE LYMPHOCYTES (AUTO) 0.7 10^3/uL (0.5-4.7); ABSOLUTE MONOCYTES (AUTO) 0.6 10^3/uL (0.1-1.4); ABSOLUTE NEUT (AUTO) 3.3 10^3/uL (1.7-8.2); BASOPHILS % (AUTO) 0.6 % (0-2); EOSINOPHILS % (AUTO) 0.9 % (0-6); HEMATOCRIT 36.5 % (36.0-47.0); HEMOGLOBIN 12.5 g/dL (12.0-15.5); LYMPHOCYTES % (AUTO) 15.1 % (13-45); MEAN CORPUSCULAR HEMOGLOBIN 29.8 pg (27.0-33.4); MEAN CORPUSCULAR HGB CONC 34.2 g/dL (32.0-36.0); MEAN CORPUSCULAR VOLUME 87 fl (80-97); MONOCYTES % (AUTO) 13.3 % (3-13); PLATELET COUNT 213 10^3/uL (150-450); RED BLOOD COUNT 4.19 10^6/uL (3.72-5.28); RED CELL DISTRIBUTION WIDTH 13.8 % (11.5-14.0); SEGMENTED NEUTROPHILS % (AUTO) 70.1 % (42-78); TOTAL CELLS COUNTED % (AUTO) 100 %; WHITE BLOOD COUNT 4.8 10^3/uL (4.0-10.5)
[2020-01-14 00:32] LABS: APPEARANCE,URINE SLIGHTLY-CLOUDY; BILIRUBIN,URINE NEGATIVE (NEGATIVE); CALCIUM OXALATE CRYSTALS,URINE MODERATE /HPF; COLOR,URINE YELLOW; GLUCOSE, URINE NEGATIVE (NEGATIVE); KETONES,URINE NEGATIVE (NEGATIVE); LEUKOCYTE ESTERASE,URINE NEGATIVE (NEGATIVE); NITRITE,URINE NEGATIVE (NEGATIVE); PROTEIN,URINE 30 mg/dL (NEGATIVE); URINE SPECIFIC GRAVITY 1.032
--- NOTE | 2020-01-14 00:42 | ER Document Report ---
ED General - General Chief Complaint: Flu Symptoms Stated Complaint: CHILLS/HEADACHE.ABDOMINAL PAIN/VOMITING Time Seen by Provider: 01/13/20 21:55 Primary Care Provider: HUMA ARANA DO [Primary Care Provider] - Follow up as needed Mode of Arrival: Ambulatory Information source: Patient Notes: Patient is a 24-year-old female presents emergency flulike symptoms. Patient states that she has had a headache, body aches, chills since yesterday. Patient is currently breast-feeding. Patient son is having similar symptoms. TRAVEL OUTSIDE OF THE [place] IN LAST 30 DAYS: No - Related Data Allergies/Adverse Reactions: No Known Allergies Allergy (Verified 01/13/20 21:56) Home Medications: ENFIDIPINE Past Medical History - General Information source: Patient - Social History Smoking Status: Never Smoker Frequency of alcohol use: None Drug Abuse: None Family History: Reviewed & Not Pertinent - Past Medical History Cardiac Medical History: Reports: Hx Hypertension Neurological Medical History: Reports: Hx Migraine Renal/ Medical History: Denies: Hx Peritoneal Dialysis Psychiatric Medical History: Reports: Hx Depression Past Surgical History: Reports: Hx Tonsillectomy - Immunizations Immunizations up to date: Yes Hx Diphtheria, Pertussis, Tetanus Vaccination: Yes Review of Systems - Review of Systems Constitutional: Chills, Fever Respiratory: Cough Musculoskeletal: Other - body aches -: Yes All other systems reviewed and negative Physical Exam - Vital signs Vitals: Temp Pulse BP Pulse Ox 99.2 F 122 H 134/76 H 98 01/13/20 21:23 01/13/20 21:23 01/13/20 21:23 01/13/20 21:23 - Notes Notes: PHYSICAL EXAMINATION: GENERAL: Well-appearing, well-nourished and in no acute distress. HEAD: Atraumatic, normocephalic. EYES: Pupils equal round and reactive to light, extraocular movements intact, conjunctiva are normal. ENT: Nares patent, oropharynx clear without exudates. Moist mucous membranes. NECK: Normal range of motion, supple without lymphadenopathy LUNGS: Breath sounds clear to auscultation bilaterally and equal. No wheezes rales or rhonchi. HEART: Regular rate and rhythm without murmurs ABDOMEN: Soft, nontender, nondistended abdomen. No guarding, no rebound. No masses appreciated. Female : deferred Musculoskeletal: Normal range of motion, no pitting or edema. No cyanosis. NEUROLOGICAL: Cranial nerves grossly intact. Normal speech, normal gait. Normal sensory, motor exams PSYCH: Normal mood, normal affect. SKIN: Warm, Dry, normal turgor, no rashes or lesions noted. Course - Re-evaluation Re-evalutation: Laboratory 01/13/20 01/13/20 01/13/20 23:45 23:45 23:45 WBC 4.8 RBC 4.19 Hgb 12.5 Hct 36.5 MCV 87 MCH 29.8 MCHC 34.2 RDW 13.8 Plt Count 213 Lymph % (Auto) 15.1 [place] % (Auto) 13.3 H Eos % (Auto) 0.9 Baso % (Auto) 0.6 Absolute Neuts (auto) 3.3 Absolute Lymphs (auto) 0.7 Absolute Monos (auto) 0.6 Absolute Eos (auto) 0.0 Absolute Basos (auto) 0.0 Seg Neutrophils % 70.1 Sodium 137.9 Potassium 4.4 Chloride 103 Carbon Dioxide 24 Anion Gap 11 BUN 13 Creatinine 0.70 Est GFR ( Amer) > 60 Est GFR (MDRD) Non-Af > 60 Glucose 88 Calcium 9.9 Total Bilirubin 0.8 Direct Bilirubin 0.2 Neonat Total Bilirubin Not Reportable Neonat Direct Bilirubin Not Reportable Neonat Indirect Bili Not Reportable AST 21 ALT 19 Alkaline Phosphatase 76 Total Protein 8.4 H Albumin 4.7 Lipase 66.8 Urine Color YELLOW Urine Appearance SLIGHTLY-CLOUDY Urine pH 6.0 Ur Specific [place] 1.032 Urine Protein 30 H Urine Glucose (UA) NEGATIVE Urine Ketones NEGATIVE Urine Blood NEGATIVE Urine Nitrite NEGATIVE Urine Bilirubin NEGATIVE Urine Urobilinogen 2.0 H Ur Leukocyte Esterase NEGATIVE Urine WBC (Auto) 1 Urine RBC (Auto) 1 Urine Bacteria (Auto) TRACE Squamous Epi Cells Auto 5 Calcium Oxalate Cr Auto MODERATE Urine Mucus (Auto) MOD Urine Ascorbic Acid NEGATIVE Urine HCG, Qual NEGATIVE COVID-19 Source Influenza A (Rapid) Influenza B (Rapid) 01/13/20 01/13/20 23:45 23:55 WBC RBC Hgb Hct MCV MCH MCHC RDW Plt Count Lymph % (Auto) [place] % (Auto) Eos % (Auto) Baso % (Auto) Absolute Neuts (auto) Absolute Lymphs (auto) Absolute Monos (auto) Absolute Eos (auto) Absolute Basos (auto) Seg Neutrophils % Sodium Potassium Chloride Carbon Dioxide Anion Gap BUN Creatinine Est GFR ( Amer) Est GFR (MDRD) Non-Af Glucose Calcium Total Bilirubin Direct Bilirubin Neonat Total Bilirubin Neonat Direct Bilirubin Neonat Indirect Bili AST ALT Alkaline Phosphatase Total Protein Albumin Lipase Urine Color Urine Appearance Urine pH Ur Specific [place] Urine Protein Urine Glucose (UA) Urine Ketones Urine Blood Urine Nitrite Urine Bilirubin Urine Urobilinogen Ur Leukocyte Esterase Urine WBC (Auto) Urine RBC (Auto) Urine Bacteria (Auto) Squamous Epi Cells Auto Calcium Oxalate Cr Auto Urine Mucus (Auto) Urine Ascorbic Acid Urine HCG, Qual COVID-19 Source See comment Influenza A (Rapid) NEGATIVE Influenza B (Rapid) NEGATIVE Patient appears well, nontoxic. At the time of my evaluation she has already received IV fluids. She reports she feels much improved. Her vital signs have improved. Likely viral illness. COVID-19 pending. ED return precautions discussed, patient verbalized understanding and agreement with same. - Vital Signs Vital signs: Temp Pulse Resp BP Pulse Ox 98.2 F 86 18 110/63 100 01/14/20 01:53 01/14/20 01:53 01/14/20 01:53 01/14/20 01:53 01/14/20 01:53 - Laboratory Result Diagrams: 01/13/20 23:45 01/13/20 23:45 Laboratory results interpreted by me: 01/13/20 01/13/20 01/13/20 23:45 23:45 23:45 [place] % (Auto) 13.3 H Total Protein 8.4 H Urine Protein 30 H Urine Urobilinogen 2.0 H Discharge - Discharge Clinical Impression: Viral illness, Encounter for laboratory testing for COVID-19 virus Condition: Stable Disposition: HOME, SELF-CARE Additional Instructions: If you were prescribed medications during today's visit please take them exactly as prescribed. Push fluids. Get plenty of rest. Tylenol or Motrin for fever and body aches. Good handwashing and stay away from others. Return to the emergency department with any new or worsening symptoms such as difficulty breathing, or any other worsening symptoms. Prescriptions: Ondansetron [Zofran Odt 4 mg Tablet] 1 - 2 tab PO Q4H PRN #15 tab.rapdis PRN Reason: For Nausea/Vomiting Referrals: HUMA ARANA DO [Primary Care Provider] - Follow up as needed
[2020-01-14 00:45] LABS: ALBUMIN 4.7 g/dL (3.5-5.0); ALKALINE PHOSPHATASE 76 U/L (38-126); ANION GAP 11 (5-19); ASPARTATE AMINO TRANSFERASE 21 U/L (14-36); BILIRUBIN,DIRECT 0.2 mg/dL (0.0-0.4); BILIRUBIN,TOTAL 0.8 mg/dL (0.2-1.3); BLOOD UREA NITROGEN 13 mg/dL (7-20); CALCIUM 9.9 mg/dL (8.4-10.2); CARBON DIOXIDE 24 mmol/L (22-30); CHLORIDE 103 mmol/L (98-107); GLUCOSE 88 mg/dL (75-110); POTASSIUM 4.4 mmol/L (3.6-5.0); TOTAL PROTEIN 8.4 g/dL (6.3-8.2)
[2020-01-14 00:50] LABS: A TYPE INFLUENZA AG NEGATIVE (NEGATIVE); B INFLUENZA AG NEGATIVE (NEGATIVE)
[2020-01-14] MEDS ORDERED: ONDANSETRON ODT 4 MG TAB (6 TAB/ER DISP) PO PRN (01:27)
[2020-01-14 01:56] VITALS: BP 110/63
== END 2020-01-14 01:53 | disposition home or self-care (01) ==
LOC: ER 21:00
DX: U07.1 COVID-19 (principal); R51.9 Headache, unspecified; B34.9 Viral infection, unspecified; M79.10 Myalgia, unspecified site; R68.83 Chills (without fever); I10 Essential (primary) hypertension
CPT/HCPCS: 99283; 36415; 83690; 85025; 87635; 81025; 80053; 81001; 87804; J3490; C9803